=== PATIENT | female | born 1955 | race Caucasian/White ===

== ENCOUNTER 2024-02-08 13:44 | Outpatient (CLI) | payer MEDICARE, SELFPAY ==
[2024-02-08 14:10] LABS: Basophils # 0.1 K/mm3 (0-0.2); Basophils % 1.1 % (0.1-2.0); Eosinophils # 0.2 K/mm3 (0.0-0.4); Hematocrit 38.2 % (37.0-47.0); Lymphocytes # 1.8 K/mm3 (0.7-4.5); Lymphocytes % 33.1 % (10-50); Mean Corpuscular HGB Conc 34.2 g/dL (31.8-35.4); Mean Corpuscular Hemoglobin 31.8 pg (27.0-31.2); Mean Platelet Volume 8.5 fl (7.4-10.4); Monocytes # 0.4 K/mm3 (0.1-1.0); Monocytes % 6.4 % (1.7-9.3); Neutrophils # 3.1 K/mm3 (1.8-7.8); Neutrophils % 56.3 % (37.0-80.0); Platelet Count 284 K/mm3 (142-424); Red Cell Distribution Width 14.3 % (11.5-17.5); White Blood Count 5.5 K/mm3 (4.8-10.8)
[2024-02-08 15:08] LABS: 25-OH Vitamin D, Total 108 ng/mL (30-100)
[2024-02-08 15:11] LABS: Erythrocyte Sedimentation Rate 22 mm/hr (0-30)
[2024-02-08 16:56] LABS: Alanine Aminotransferase 17 U/L (12-78); Albumin Level 4.3 g/dl (3.5-5.0); Albumin/Globulin Ratio 1.7 (1.1-1.8); Alkaline Phosphatase 84 U/L (38-126); Anion Gap 12.6 mEq/L (5-15); Aspartate Amino Transferase 37 U/L (14-36); Bilirubin,Total 0.5 mg/dl (0.2-1.3); Blood Urea Nitrogen 19 mg/dl (7-17); Calcium 9.5 mg/dl (8.4-10.2); Carbon Dioxide 27 mmol/L (22.0-30.0); Chloride 106 mmol/L (98-107); Estimated Glomerular Filt Rate 71 ml/min (>60); GFR (African American) 86 ML/MIN (>60); Globulin 2.6 g/dL (1.3-3.2); Glucose 90 mg/dl (74-100); Potassium 4.6 mmoL/L (3.5-5.1); Sodium 141 mmol/L (136-145); Total Protein,Serum 6.9 g/dl (6.3-8.2)
[2024-02-08 17:01] LABS: C-Reactive Protein 2.9 mg/L (0-4)
[2024-02-08 18:23] LABS: Vitamin B12 > 1000 pg/mL (239-931)
[2024-02-08 19:44] LABS: Iron 54 ug/dL (37-170)
[2024-02-08 19:53] LABS: Total Iron Binding Capacity 380 ug/dL (265-497)
[2024-02-08 20:20] LABS: Ferritin 15.9 ng/ml (11.1-264)
== END 2024-02-08 23:59 | disposition home or self-care (01) ==
LOC: LAB 13:47
PROVIDERS: PCP Emergency Medicine; Visit Provider Nurse Practitioner Family
DX: K51.90 Ulcerative colitis, unspecified, without complications (principal); E55.9 Vitamin D deficiency, unspecified
CPT/HCPCS: 36415; 80053; 82306; 82607; 82728; 83540; 83550; 85025; 85651; 86140

== ENCOUNTER 2024-04-12 14:46 | Outpatient (CLI) | payer MEDICARE, SELFPAY ==
[2024-04-12 15:00] LABS: Microscopic, Urine URINE MICROSCOPIC (MICROSCOPIC)
[2024-04-12 15:40] LABS: Hematocrit 40.1 % (37.0-47.0); Mean Corpuscular HGB Conc 32.4 g/dL (31.8-35.4); Mean Corpuscular Hemoglobin 30.4 pg (27.0-31.2); Mean Corpuscular Volume 93.7 fl (81-99); Platelet Count 276 K/mm3 (142-424); Red Blood Count 4.28 M/mm3 (4.20-5.40); Red Cell Distribution Width 13.3 % (11.5-17.5); White Blood Count 7.2 K/mm3 (4.8-10.8)
[2024-04-12 15:49] LABS: Appearance,Urine CLEAR (Clear); Bilirubin,Urine Negative (Negative); Blood, Urine Negative (Negative); Color,Urine YELLOW (Yellow); Glucose,Urine (UA) Negative (Negative); Ketones,Urine Negative (Negative); Leukocyte Esterase,Urine 1+ (Negative); Nitrate,Urine Negative (Negative); Protein,Urine Negative (Negative); Urobilinogen,Urine 0.2 EU/dl (0.2)
[2024-04-12 15:51] LABS: Alanine Aminotransferase 17 U/L (12-78); Albumin Level 4.7 g/dl (3.5-5.0); Albumin/Globulin Ratio 1.8 (1.1-1.8); Alkaline Phosphatase 86 U/L (38-126); Anion Gap 14.4 mEq/L (5-15); Aspartate Amino Transferase 24 U/L (14-36); Bilirubin,Total 0.2 mg/dl (0.2-1.3); Blood Urea Nitrogen 18 mg/dl (7-17); Calcium 10.1 mg/dl (8.4-10.2); Carbon Dioxide 28 mmol/L (22.0-30.0); Chloride 104 mmol/L (98-107); Estimated Glomerular Filt Rate 62 ml/min (>60); GFR (African American) 75 ML/MIN (>60); Globulin 2.6 g/dL (1.3-3.2); Glucose 94 mg/dl (74-100); Potassium 4.4 mmoL/L (3.5-5.1); Sodium 142 mmol/L (136-145); Total Protein,Serum 7.3 g/dl (6.3-8.2); Uric Acid 4.8 mg/dl (2.5-6.2)
[2024-04-12 16:03] LABS: Intact Parathyroid Hormone 44.8 pg/mL (7.5-53.5)
[2024-04-12 16:08] LABS: 25-OH Vitamin D, Total 93.5 ng/mL (30-100)
[2024-04-12 16:22] LABS: Bacteria,Urine 1+ /lpf
[2024-04-12 16:23] LABS: Hemoglobin A1C 5.4 % (4.0-6.0)
== END 2024-04-12 23:59 | disposition home or self-care (01) ==
PROVIDERS: PCP Emergency Medicine; Visit Provider Internal Medicine Nephrology
DX: I10 Essential (primary) hypertension (principal); G47.30 Sleep apnea, unspecified; E03.9 Hypothyroidism, unspecified
CPT/HCPCS: 36415; 80053; 81001; 82306; 83036; 83970; 84550; 85027; 87086

== ENCOUNTER 2024-06-01 12:18 | Outpatient (CLI) | payer MEDICARE, SELFPAY ==
--- NOTE | 2024-06-01 12:36 | CT_ITS ---
FINAL REPORT TECHNIQUE: After the administration of intravenous contrast, axial images through the chest were performed by computed tomography. Coronal and sagittal reconstructed images were obtained and reviewed. This study was performed with techniques to keep radiation doses as low as reasonably achievable, (ALARA). Individualized dose reduction techniques using automated exposure control or adjustment of mA and/or kV according to the patient's size were employed. CLINICAL HISTORY: Shortness of breath COMPARISON: None FINDINGS: There is no axillary adenopathy. The mediastinal vasculature is adequately opacified. There is no mediastinal mass or adenopathy. The heart size is normal. There is scarring at the lung bases and in the medial left apex. There is no pericardial or pleural effusion. There is streak artifact from a loop recorder device in the upper left thorax. Limited images of the upper abdomen are unremarkable. No suspicious infiltrate or nodule identified. IMPRESSION: No acute process. Reviewed, Interpreted and Dictated by Fredrick Bobby MD Transcribed by Miriam Bruno Authenticated and [facility]
[2024-06-01 12:48] LABS: Blood Urea Nitrogen 19 mg/dl (7-17); Estimated Glomerular Filt Rate 62 ml/min (>60); GFR (African American) 75 ML/MIN (>60)
[2024-06-01] MEDS: IOPAMIDOL-370 (76%);100ML BOTTLE 75 ML IV (13:07)
[2024-06-01] MEDS: SODIUM CHLORIDE 0.9% 10ML SYR (RAD ONLY) 10 ML IV (13:07)
== END 2024-06-01 23:59 | disposition home or self-care (01) ==
LOC: RAD 12:21
PROVIDERS: PCP Emergency Medicine; Visit Provider Emergency Medicine
DX: R06.00 Dyspnea, unspecified (principal)
CPT/HCPCS: 36415; 71260; 82565; 84520; Q9967

== ENCOUNTER 2024-09-05 09:38 | Outpatient (CLI) | payer MEDICARE, SELFPAY ==
--- OUTSIDE RECORDS SUMMARY | 2024-09-05 09:44 | XMS_ITS | Data Portability ---
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 Her sister agrees to stepping as patient's advocate [email or web address] Not available 05/18/2024 10:32:47 Plan of Treatment Reminders Order Date Submit Date Provider Last Modified By Organization Details Last Modified Time Details Appointments None recorded. Lab None recorded. Referral neurologist referral 2024 025 mayra Salamanca MD, [address], [place], [address], 11:08:[address] referral - sob. may have pe? 2024 025 mayra Medrano MD, [address], [address], [place], [address], 11:08:31 nephrologis t referral 2023 024 mayra Cantrell MD, [address], [place], [address], 07:19:55 gastroenter ologist referral 2023 024 IRON Sousa MD, [address], [place], [address], 4 14:08:28 Procedures None recorded. Surgeries None recorded. Imaging CT, chest, w/ contrast - PE protocol 2024 025 [facility] Scheduling Department -New Scheduling Process, [address], [place], [address], 5 13:21:17 MAMMO, screening, digital, bilateral 2023 024 [email or web address] 0 [facility] (Scheduling), [address] [place], [address], 4 09:55:43 Medication Orders duloxetine 20 mg capsule,del ayed release 2024 025 [facility] [id number], [address] [place] [address], [address], [address], 5 10:31:20 amlodipine 5 mg tablet 2023 024 [facility] [id number], [address] [place] [address], [address], [address], 4 12:23:33 amlodipine 5 mg tablet 2023 024 [facility] [id number], [address] [place] [address], [address], [address], 4 12:05:51 Patient TargetsNo targets recorded. Patient InstructionsNo instructions recorded. Reason for Referral Manager Library Referral for Gastric spasm Referring Physician: Aleksandar Sanders [facility], Encounter Date: 01/20/2024 Staffing And Scheduling Coordinator Referral for Es sential hypertension Referring Physician: Aleksandar Sanders [facility], Encounter Date: 01/28/2024 Neurologist Referral for Tra nsient cerebral ischemia Referring Physician: [facility], Encounter Date: 05/18/2024 Lpn Cma Referral for D yspnea sob. may have pe? Referring Physician: Aleksandar Sanders [facility], Encounter Date: 05/18/2024 Results Created Date Observation Date Name Description Value Unit Range Abnormal Flag Note LastModifiedBy Organization Detail LastModifiedTime 08/12/19 24 08/11/2023 imagi ng inter preta tion No observ ation record ed. [facility] [address], [place], [address], 08/12/2023 16:27:57 06/09/19 25 06/01/2024 CT, chest , w/ contr ast No observ ation record ed. [facility] (Med Record) [address], [place], [address], 06/08/2024 14:27:19 Result Notes None recorded. Problems Name Problem SNOMED Code Status Onset Date Resolution Date Notes Provider Name and Address Organization Details Recorded Time Chronic kidney disease 873202950 Active 2023 Oraliagoldy Laboyi null, [place] - [facility] [place] [facility] [place] 4 11:37:11 Vertigo 813837621 Active 2022 Oralia Je null, [place] [facility] [place] [facility] [place] 3 11:45:53 Essential hypertensi on 76121850 Active 2022 Oralia Nardai null, [place] [facility] [place] 3 11:46:00 Hypothyroi dism 44254887 Active 2022 Oralia Nardai null, [place] [facility] [place] 3 11:46:08 Sensorineu ral hearing loss 45573069 Active 2022 ESVIN CABRERA, AUD [address] [facility], [place], [address] , [place] [facility] [place] [facility] [place] 3 10:34:18 Asymmetric al sensorineu ral hearing loss 860676644 Active 2022 ESVIN CABRERA, AUD [address], [place], [address] , [facility] & [place] 3 10:36:27 Dizziness 760516119 Active 2022 CLARK REAVES [address], [place], [address] , [facility] & [place] 3 10:36:30 Subjective pulsatile tinnitus of left ear 8678932066573 103 Active 2022 ESVIN CABRERA, AUD [address], [place], [address] , [facility] & [place] 3 10:36:34 Rib pain 071776068 Active 2022 Aleksandar Sanders MD [address] [place] [address], [address] , [facility] [place] 3 10:39:49 History of colitis 533918327 Active 2023 Oralia Wooten [facility], [facility] & [place] 4 15:56:06 Problem Notes None recorded. Procedures Surgical History Date Name Laterality Status Provider Name and Address Organization Details Recorded Time 03/23/18 81 Tonsillectomy/Andrew oidectomy completed Althea Hoskins NT [facility] [place] 01/30/2023 09:07:02 Other completed Althea Hoskins [facility] [place] 01/30/2023 09:07:02 ligation of bilateral fallopian tubes [facility] [place] 01/21/2024 11:01:31 extracorporeal shockwave lithotripsy of calculus of kidney completed [facility] [place] 01/21/2024 11:01:48 Imaging Results None recorded. Procedure Notes None recorded. Medical Equipment None Reported. Allergies No known drug allergies Medications Name Sig Start Date Stop Date Status Note LastModified by Organization Details LastModified Time cyclobenzap rine 10 mg tablet 11/19 completed Not Available Not Available Not Available amoxicillin 500 mg capsule 08/11 completed Not Available Not Available Not Available atorvastati n 40 mg tablet 1 tablet by mouth once daily active Not Available Not Available No t Available clonidine HCl 0.1 mg tablet 01/19 completed Not Available Not Available Not Available doxycycline hyclate 100 mg capsule Take 1 capsule twice a day by oral route. 01/07 completed Not Available Not Available Not Available clonidine 0.1 mg/24 hr weekly transdermal patch 01/19 completed Not Available Not Available Not Available clonidine 0.2 mg/24 hr weekly transdermal patch 05/18 completed Not Available Not Available Not Available metoprolol succinate ER 50 mg tablet,exte nded release 24 hr TAKE 1 TABLET BY MOUTH DAILY active Not Available Not Available No t Available ondansetron HCl 8 mg tablet 02/01 completed Not Available Not Available Not Available lisinopril 20 mg tablet 11/19 completed Not Available Not Available Not Available ondansetron HCl 4 mg tablet 12/17 completed Not Available Not Available Not Available prednisone 20 mg tablet Take by oral route for 5 days. 12/17 completed Not Available Not Available Not Available topiramate 25 mg tablet 01/19 completed Not Available Not Available Not Available amlodipine 5 mg tablet Take 1 tablet every day by oral route. active Not Available Not Available No t Available ciprofloxac in 500 mg tablet 05/18 completed Not Available Not Available Not Available aspirin 81 mg tablet,mayelin yed release Take 1 tablet every day by oral route for 90 days. 2024 active Not Available Not Available Not Avai lable spironolact one 25 mg tablet 05/18 completed Not Available Not Available Not Available levothyroxi ne 25 mcg tablet Take by oral route for 90 days. active Not Available Not Available No t Available oxycodone-a cetaminophe n 5 mg-325 mg tablet 01/19 completed Not Available Not Available Not Available nifedipine ER 60 mg tablet,exte nded release 24 hr active Not Available Not Available Not Available meclizine 25 mg tablet 02/01 completed Not Available Not Available Not Available amlodipine 10 mg tablet 01/19 completed Not Available Not Available Not Available oseltamivir 75 mg capsule 05/18 completed Not Available Not Available Not Available lisinopril 10 mg tablet Take 1 tablet every day by oral route for 30 days. active Not Available Not Available No t Available omeprazole 20 mg capsule,del ayed release TAKE 1 CAPSULE BY MOUTH DAILY NEEDED active Not Available Not Available No t Available hydroxyzine HCl 25 mg tablet Take 1 tablet 3 times a day by oral route as needed for 30 days. 01/07 completed Not Available Not Available Not Available clonidine 0.3 mg/24 hr weekly transdermal patch active Not Available Not Available Not Available metoprolol succinate ER 25 mg tablet,exte nded release 24 hr Take 1 tablet every day by oral route as directed for 30 days. active Not Available Not Available No t Available scopolamine 1 mg over 3 days transdermal patch 01/19 completed Not Available Not Available Not Available lisinopril 40 mg tablet TAKE ONE TABLET BY MOUTH DAILY 01/07 completed Not Available Not Available Not Available spironolact one 50 mg tablet active Not Available Not Available Not Available metoclopram delfino 10 mg tablet 02/01 completed Not Available Not Available Not Available azithromyci n 500 mg tablet 12/09 completed Not Available Not Available Not Available duloxetine 20 mg capsule,del ayed release TAKE 1 CAPSULE BY MOUTH DAILY 2024 active Not Available Not Available Not Avai lable mesalamine 1,000 mg rectal suppository 11/19 completed Not Available Not Available Not Available Culturelle active Not Available Not Av ailable Not Available mesalamine 1.2 gram tablet,mayelin yed release 08/11 completed Not Available Not Available Not Available mesalamine ER 0.375 gram capsule,ext ended release 24 hr TAKE FOUR CAPSULES BY MOUTH DAILY active Not Available Not Available No t Available calcium 200 mg-vitamin D3 1.25 mcg-magnesi um 50 mg capsule Take by oral route. 01/19 completed Not Available Not Available Not Available Kerendia 20 mg tablet Take by oral route for 90 days. 2023 active Not Available Not Available Not Avai lable Vitals Date Recorded Body height Body mass index (BMI) Body weight Body temperature Oxygen saturation Oxygen saturation in Arterial blood by Pulse oximetry Heart rate Respiratory rate Systolic blood pressure Diastolic blood pressure Systolic blood pressure Diastolic blood pressure Provider Name and Address Organization Details Last Updated DateTime 4 171.45 cm 35.7 kg/m2 026444. 99 g 97.3 [degF] 96 % 96 % 78 /min 20 /min 146 mm[Hg] 87 mm[Hg] 112 mm[Hg] 72 mm[Hg] Oralia [place]oy [place] [facility] & [place] 4 10:14:03 Date Recorded Body height Body mass index (BMI) Body weight Heart rate Body temperature Oxygen saturation Oxygen saturation in Arterial blood by Pulse oximetry Systolic blood pressure Diastolic blood pressure Provider Name and Address Organization Details Last Updated DateTime 5 171.45 cm 31.6 kg/m2 55458 g 87 /min 97.5 [degF] 96 % 96 % 119 mm[Hg] 76 mm[Hg] Oralia Laboy [place] [facility] & [place] 5 09:53:53 Date Recorded Body height Body mass index (BMI) Body weight Body temperature Oxygen saturation Oxygen saturation in Arterial blood by Pulse oximetry Heart rate Respiratory rate Systolic blood pressure Diastolic blood pressure Provider Name and Address Organization Details Last Updated DateTime 4 171.45 cm 32.5 kg/m2 11983.2 7 g 97.6 [degF] 96 % 96 % 69 /min 16 /min 161 mm[Hg] 82 mm[Hg] Oralia Laboy [place] [facility] & [place] 4 10:31:31 Date Recorded Body height Body mass index (BMI) Body weight Body temperature Oxygen saturation Oxygen saturation in Arterial blood by Pulse oximetry Heart rate Respiratory rate Systolic blood pressure Diastolic blood pressure Provider Name and Address Organization Details Last Updated DateTime 4 171.45 cm 32.8 kg/m2 87160.4 6 g 98 [degF] 95 % 95 % 64 /min 16 /min 191 mm[Hg] 91 mm[Hg] Oralia Laboy [place] - [facility] & [place] 4 12:05:30 Date Recorded Body height Body mass index (BMI) Body weight Body temperature Oxygen saturation Oxygen saturation in Arterial blood by Pulse oximetry Heart rate Respiratory rate Systolic blood pressure Diastolic blood pressure Provider Name and Address Organization Details Last Updated DateTime 4 171.45 cm 33.4 kg/m2 41096.1 1 g 97.2 [degF] 99 % 99 % 57 /min 16 /min 185 mm[Hg] 79 mm[Hg] Oralia SYLVESTER [facility] & [place] 11:54:17 Social History Question Answer Notes LastModified by Organizat ion Details LastModified Time Tobacco Smoking Status Never Smoker Oralia mera, [place] [facility] & [place] 12/09/2022 11:46:49 Do You Have An Advance Directive? No [email or web address] Information n ot available 02/04/2023 Do You Wear A Helmet When Biking? No Information not available 02/29/2024 Are You Blind Or Do You Have Difficulty Seeing? No [email or web address] Information n ot available 02/04/2023 What Is Your Level Of Caffeine Consumption? Occasional [email or web address] Information not available 02/04/2023 In The 14 Days Before Symptom Onset, Have You Had Close Contact With A Laboratory-confirm ed COVID-19 While That Case Was Ill? No Information n ot available 02/29/2024 In The 14 Days Before Symptom Onset, Have You Had Close Contact With A Person Who Is Under Investigation For COVID-19 While That Person Was Ill? No Information not available 02/29/2024 Have You Been To An Area Known To Be High Risk For COVID-19? No Information not available 02/29/2024 Are You Deaf Or Do You Have Serious Difficulty Hearing? No Information not available 02/29/2024 What Type Of Diet Are You Following? REGULAR Information n ot available 01/20/2024 Have You Processed Blood Or Body Fluids From An Ebola Virus Disease Patient Without Appropriate PPE? No Information not available 02/29/2024 Do You Reside In Or Have You Traveled To An Area Where Ebola Virus Transmission Is Active? No Information not available 02/29/2024 Have You Recently Or Are You Planning To Travel To An Area With Zika Virus? No Information not available 02/29/2024 Do You Feel Safe At Home? Yes Information not available 02/29/2024 Do You Have A Medical Power Of Client Evaluator? No Information not available 02/29/2024 What Was The Date Of Your Most Recent Tobacco Screening? 02/01/2023 [email or web address] Information not available 02/04/2023 Do You Use Your Seat Belt Or Car Seat Routinely? Yes Information not available 02/29/2024 Are You Passively Exposed To Smoke? No [email or web address] Information no t available 02/04/2023 Has Tobacco Cessation Counseling Been Provided? No [email or web address] Information not available 02/04/2023 Do You Have Difficulty Walking Or Climbing Stairs? No Information not available 02/29/2024 Are You Currently In School? No Information not available 02/29/2024 Sex: Unknown Functional Status Question Answer Note LastModified by Organizat ion Details LastModified Time Do you use any illicit or recreational drugs? No Information not available 12/09/2022 Do you or have you ever used any other forms of tobacco or nicotine? No [email or web address] Information not available 02/04/2023 What is your level of alcohol consumption? None Information not available 12/09/2022 Are you currently employed? No Information not available 02/29/2024 Do you have transportation difficulties? No Information not available 02/29/2024 Are you able to walk? [email or web address] Information not available 02/29/2024 Do you have difficulty doing errands alone? No Information not available 02/29/2024 Are you able to care for yourself? Yes Information not available 02/29/2024 Do you have difficulty dressing or bathing? No Information not available 02/29/2024 What is your exercise level? Moderate [email or web address] Information not available 02/04/2023 Mental Status Question Answer Note LastModified by Organizat ion Details LastModified Time Do you feel stressed (tense, restless, nervous, or anxious, or unable to sleep at night)? [id number] Information not available 02/29/2024 Do you have difficulty concentrating, remembering or making decisions? No Information no t available 02/29/2024 Family History Relationship Description Onset Age of this Age Resolved Age Notes LastModified by Organization Details LastModified Time Father No current problems or disability [email or web address] Not available 02/04 10:08:24 Father Suicide [email or web address] Not available 02/04/2023 10:08:24 Father Father [email or web address] Not available 2022 10:08:24 Mother No current problems or disability [email or web address] Not available 02/04 10:08:24 Mother Chronic obstructive pulmonary disease 81 Not available 2022 09:24:38 Mother Heart disease 81 [email or web address] Not available 2022 09:24:58 Mother Mother 81 [email or web address] Not available 2022 10:08:24 Brother Motor vehicle accident [email or web address] Not available 2022 10:08:24 Brother Sibling Not available 2022 10:08:24 Daughter Kidney disease Not available 2022 09:26:26 Medical History Condition Response Allergies/Hayfever Y Arthritis Y Ear or Hearing Problems Y Sleep Disorder Y Stroke Y Thyroid Problems Y Hypertension Y Gynecological History Statement/Question Response Menses Monthly N Sexually Active? N Obstetrics History GPAL:G 0 P 0 0 0 0 Immunizations Vaccine Type Date Status Note Provider Nam e and Address Organization Details Recorded Time Tdap 03/27/2017 completed Althea mera, [place] [facility] [place] [facility] [place] 01/30/2023 09:26:47 zoster recombinant 05/07/2021 completed Althea [place]era, [place] [facility] [place] [facility] [place] 08/10/2023 09:11:39 zoster recombinant 12/06/2020 completed Althea [place]era, [place] [facility] [place] [facility] [place] 08/10/2023 09:11:39 Influenza, high-dose, quadrivalent, PF 12/26/2021 iman mera, [place] [facility] [place] [facility] [place] 08/10/2023 09:11:39 COVID-19, mRNA, LNP-S, PF, 100 mcg/0.5mL dose or 50 mcg/0.25mL dose 04/14/2020 iman Robertsonher Archibald null, [place] [facility] [place] 08/10/2023 09:11:40 COVID-19, mRNA, LNP-S, PF, 100 mcg/0.5mL dose or 50 mcg/0.25mL dose 05/12/2020 completed Althea Dragan null, [place] [facility] [place] [facility] [place] 08/10/2023 09:11:40 COVID-19, mRNA, LNP-S, PF, 100 mcg/0.5mL dose or 50 mcg/0.25mL dose 02/07/2021 completed Althea Arch[place]ald null[place] [facility] [place] [facility] [place] 08/10/2023 09:11:40 Hep B, unspecified formulation 08/13/1995 completed Althea Archibald null[place] [facility] [place] [facility] [place] 08/10/2023 09:11:40 Hep A, adult 04/25/2019 completed Althea Sin s [place] [facility] [place] 08/10/2023 09:11:40 Hep A, adult 10/13/2018 completed Althea Merrick s null[place] [facility] [place] [facility] [place] 08/10/2023 09:11:40 Past Encounters Encounter ID Performer Location Encounter Start Date Encounter Closed Date Diagnosis/Indication Diagnosis SNOMED-CT Code Diagnosis ICD10 Code Diagnosis Note [id number] Aleksandar Sanders MD [facility] [address] [place] [address] 11/19/2022 10:13:48 11/19/2022 11:40:30 History of cerebrovascular accident 958565021 Z86.73 patient appears to have had a new cerebrovas cular accident. Will refer her to speech therapy, and neurology. Will attempt to get an MRI. Essential hypertension 16464375 I10 Patient's blood pressure appears to be irregular. She has been advised to keep a log, hold off taking the amlodipine and follow-up in a week. Hypothyroidism 17798402 E03.9 Will obtain lab work today. Ulcerative colitis 74282 004 K51.90 patient is being followed by gastroente rology. Diabetes m ellitus screening 062701796 Z13.1 Will obtain screening labs at this time. Dizziness 826261413 R42 [id number] Aleksandar Sanders MD [address] [place] [address] 11/26/2022 15:11:36 11/26/2022 15:56:43 Orthostatic hypotension 83249184 I95.1 pt to hold all blood pressure lowering meds at this time call in 24 hrs with readings and symptoms Dizziness 090680321 R42 hold bp meds - will obtain echocardio gram [id number] Aleksandar Sanders MD [address] [place] [address] 12/09/2022 11:24:52 12/09/2022 12:15:38 Dizziness 515966965 R42 patient to follow-up with leida harden. Will treat her for labyrinthi tis. She is to to call and get her speech therapy appointmen fina garcia Decreased hearing 778271 001 H91.92 will refer patient to ENT. [id number] Mingo Heredia M.D [facility] [address] [address] 12/11/2022 10:10:20 12/11/2022 11:23:54 Benign paroxysmal positional vertigo 485735935 H81.10 Dysarthria 9824591 R47.1 [id number] CLARK REAVES [facility] [facility] [place] [address] 12/16/2022 09:29:44 12/16/2022 09:54:04 Asymmetrical sensorineural hearing loss 390724224 H90.5 Dizziness 070734353 R42 Subjective pulsatile tinnitus of left ear 7680522461 204076 H93.A2 [id number] Krystal Lafleur MD [facility] [address] 12/17/2022 15:31:10 12/17/2022 16:20:02 Dizziness 251261795 R42 Went over the results of the MRI myself with the patient in office today. Karin Halpike was negative in office today. I want her to discontinu e the hydroxyzin e and the oral antibiotic . The hydroxyzin e may prolong recovery. Likely diagnosis in this situation with imbalance and hearing loss is labyrhinit is. She is unfortunat kimmie out of the window that I think oral steroids may be terribly beneficial . Could consider intratympa christa steroids in the future if hearing does not improve. This can take several weeks and up to 3 months to resolve. Hearing may never fully recover. Encouraged her to keep her appointmen t with PT for vestibular therapy and to make sure she does the home exercises. I will see her back in three weeks with an audiogram. Sooner if needed. Asymmetric al sensorineural hearing loss 636594818 H90.5 Subjective pulsatile tinnitus of left ear 4837062700 050592 H93.A2 Labyrinthitis 63094846 H 83.02 [id number] Krystal Lafleur MD [facility] [place] [id number] 01/07/2023 08:54:12 01/07/2023 09:29:42 Dizziness 010480402 R42 Patient's hearing and dizziness has improved overall. I have encouraged her to resume normal activities as much as possible and continue with PT for vestibular therapy. Asymmetric al sensorineural hearing loss 341225954 H90.5 Subjective pulsatile tinnitus of left ear 2473369370 749992 H93.A2 Labyrinthitis 91282103 H 83.02 [id number] CLARK REAVES [facility] [place] [address] 01/07/2023 09:03:58 01/07/2023 09:13:00 Asymmetrical sensorineural hearing loss 589685737 H90.5 [id number] Aleksandar Sanders MD [facility] [address] [place] [address] 02/04/2023 10:07:45 02/04/2023 10:27:32 Essential hypertension 78008884 I10 patient with hold metoprolol and follow-up in a week with a log. Vertigo 057718927 R42 resolved [id number] Krystal Lafleur MD [facility] [place] [id number] 02/04/2023 08:56:48 02/04/2023 09:41:10 Dizziness 944160997 R42 Explained to patient she may be experienci ng orthostati c hypertensi on when she first stands. Her drop in blood pressure after standing for an amount of time could be related to her blood pressure medication and this is a conversati on she needs to have with her primary care physician. She doesn't feel as though she is back to baseline but she has seen johnan t improvejackie t. I will see her back as needed. Labyrinthitis 02471020 H 83.02 [id number] Aleksandar Sanders MD [address] [place] [address] 02/11/2023 09:42:42 02/11/2023 10:21:29 Screening mammography of bilateral breasts 8262494060 10423 Z12.31 Chest wall pain 64114451 6 R07.89 continued Pain from rib fractures 5 months ago. Will obtain x-rays today. Essential hypertension 42991064 I10 Patient is log has been reviewed. It appears that her blood pressures are completely erratic. There is also a drop in blood pressure with position. I have asked patient to restart her metoprolol and I have personally walked over to see her cardiologi st Dr. Stewart Vertigo [id number] R42 resolved Rib pain [id number] R07.8 1 continued rib pain to the right side. We will obtain x-rays today. [id number] Aleksandar Sanders MD [address] [place] [id number] 04/22/2023 09:50:58 04/22/2023 10:41:41 Essential hypertension [id number] I10 Patient needs to follow-up with cardiology as discussed. We have called them for an appointmen t. They will call patient with a early appointmen t to see Dr. Stewart [id number] Aleksandar Sanders MD [address] [place] [id number] 08/12/2023 10:07:43 08/12/2023 10:57:43 Essential hypertension [id number] I10 I have called Cardiology . Patient has a follow-up appointmen t. In the meantime, will start her on amlodipine for now. She has been advised to continue to check her blood pressure. Pain of [facility] [id number] M25.519 patient needs to follow-up with orthopedis t. We have already made an appointmen t for her to see the orthopedis t. [id number] Aleksandar Sanders MD [address] [place] [id number] 01/20/2024 11:45:23 01/20/2024 12:17:20 Essential hypertension [id number] I10 I have instructed patient to restart her amlodipine , I have asked her to take 5 mg a day. She has been instructed to create a log of her blood pressure once she starts the medication and to follow-up in a week. Gastric spasm [id number] K31.89 Ms. Chadwick has a history of ulcerative colitis. She is complainin g of chronic gastric spasms.ed garber is requesting a referral to her gastroente rologist. She sees Dr. Ronquillo in [place]. [id number] Aleksandar Sanders MD [address] [place] [id number] 01/28/2024 11:44:06 01/28/2024 12:27:02 Screening mammography of bilateral breasts [id number] 41651 Z12.31 Essential hypertension [id number] I10 we have reviewed patient's blood pressure log. Amlodipine has not made any changes to patient's blood pressure. Her blood pressure continues to be labile. Will refer patient to Nephrology for assistance with management . Patient is already seeing Cardiology .we have also given patient 2 weeks samples of kerendia [id number] Aleksandar Sanders MD [address] [place] [id number] 05/18/2024 09:41:18 05/18/2024 10:00:01 Hospital inpatient stay within past 30 days [id number] 106 Z76.89 Transient cerebral ischemia [id number] G45.9 will refer patient to neurology. Dyspnea [id number] R06.00 patient appears to be short of breath. Her O2 sat is above 90 however will refer to pulmonolog y. 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 Health Concerns Section Related Observation LastModified by Organization Detai ls LastModified Time None Recorded Concern Status LastModified by Organization Details LastModified Time None Recorded Advance Directives Directive N: Payers Insurance Date Sequence Insurance Name Policy Number Policy Colon Covered Member ID Colon Member ID Guarantor Name 05/17/2024 1 [employer] (MEDICARE REPLACEMENT/ ADVANTAGE - PPO) Izabela Chadwick [id number] Izabela Wu Chadwick 04/17/2023 1 [place] Izabela Chadwick [id number] Izabela Chadwick 04/15/2023 1 [place] [id number] Izabela Chadwick [id number] Izabela Chadwick 04/17/2023 1 *SELF PAY* Pa vasyl Wu Farrukh Notes Date Note Type Note Provider Name and Address Organization Details Recorded Time 04/22/2023 text/html Patient presents today to follow-up on her blood pressure. It appears that her blood pressure is dropping every time she stands up. She has stopped taking her carvedilol and feels better. Aleksandar Sanders MD [address] [place] [address], [phone], [facility] & [place] 04/22/2023 10:42:24 08/12/2023 text/html patient presents today to follow-up on her blood pressure. Her blood pressure is elevated. Patient is being seen by her unmanned equipment operator. She states that she was taken off all blood pressure medication and was told to manage her blood pressure with p.r.n. clonidine. Patient is unhappy with her blood pressure states that it is often elevated and she has a headache.She also is in the process of being seen by Physical therapy secondary to a right shoulder problem. 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 Aleksandar Sanders MD [address] [place] [address], [phone] & [place] 08/12/2023 10:45:57 01/20/2024 text/html patient presents today to discuss blood pressure management. She states that her blood pressure is elevated. Patient has been seen her unmanned equipment operator for blood pressure management. Her amlodipine was stopped because she says her blood pressure was too low. Patient presents with a log today that indicates her systolic blood pressure is persistently above 150. Patient is currently on a clonidine patch weekly. A review of a log reveals that her blood pressure is consistently elevated. Aleksandar Sanders MD [address] [place] [address], [phone], [facility] & [place] 02/29/2024 15:22:56 05/18/2024 text/html Patient presents today to follow-up from hospital visit. patient was admitted for what appeared to be a TIA. Patient remains worried and stressed. Aleksandar Sanders MD [address] [place] [address], [phone], [facility] & [place] 05/18/2024 10:33:52 OBGyn Episode No OBEpisode recorded.
[2024-09-05 10:40] VITALS: PULSE 73; PULSE 78
[2024-09-05] MEDS: ALBUTEROL 0.083% 2.5 MG/3 ML NEB IH (10:40)
== END 2024-09-05 23:59 | disposition home or self-care (01) ==
LOC: RT 09:39
PROVIDERS: PCP Emergency Medicine; Visit Provider Internal Medicine Pulmonary Disease
DX: J44.9 Chronic obstructive pulmonary disease, unspecified (principal)
CPT/HCPCS: 94060; 94618; 94640; 94726; 94729

== ENCOUNTER 2024-10-17 12:52 | Outpatient (CLI) | payer MEDICARE, SELFPAY ==
--- OUTSIDE RECORDS SUMMARY | 2024-09-15 07:49 | XMS_ITS | Encounter Summary ---
[facility] Address [address] [place] [address] Care Team Providers Care Carbon Dioxide Operator Name Role Phone Aleksandar Luciano MD Primary Care Provider [phone] Reason for Referral * Cardiac (Routine) - Closed Specialty Diagnoses / Procedures Referred By Contac t Referred To Contact Diagnoses Autonomic dysfunction Procedures Tilt Table Carol Stewart MD [address] [place] [address] Phone: tel: fax: [facility] [address] [facility] [address] [place] [address] Phone: tel: fax: Referral ID Status Reason Start Date Expiration Date Visits Re quested Visits Authorized [id number] Closed 07/25/2024 10/24/2025 1 1 Reason for Visit * Cardiac (Routine) - Closed Specialty Diagnoses / Procedures Referred By Contac t Referred To Contact Diagnoses Autonomic dysfunction Procedures Tilt Table Carol Stewart MD [address] [place] [address] Phone: tel: fax: [facility] [address] [facility] [address] [place] [address] Phone: tel: fax: Referral ID Status Reason Start Date Expiration Date Visits Re quested Visits Authorized [id number] Closed 07/25/2024 10/24/2025 1 1 Encounter Details Date Type Department Care Team (Latest Contact Info) Description 09/15/2024 7:49 AM EDT - 09/15/2024 11:59 PM EDT Hospital Encounter [facility] [place] [address] [facility] [address] [place] [address] Carol Stewart MD [address] [place] [address] Autonomic dysfunction Discharge Disposition: Home or Self Care Social History Tobacco Use Types Packs/Day Years Used Date Smoking Tobacco: Never Passive Smoke Exposure: Never Smokeless Tobacco: Never Alcohol Use Standard Drinks/Week Comments Never 0 (1 standard drink = 0.6 oz pur e alcohol) AUDIT-C Answer Date Recorded Q1: How often do you have a drink containing alc ohol? Never 10/26/2020 Average Number of Drinks Not on file 021 Frequency of Binge Drinking Not on file 08/2020 Abuse Screen Answer Date Recorded Feels Unsafe at Home or Work/School no 06/14/2024 Feels Threatened by Someone no 05/22 Does Anyone Try to Keep You From Having Contact with Others or Doing Things Outside Your Home? no 06/14/2024 Physical Signs of Abuse Present no 06/14/2024 Housing Stability Answer Date Recorded Current Living Arrangements home 05/22 Potentially Unsafe Housing Conditions Not on antonio e 06/14/2024 Disabilities Answer Date Recorded Difficulty Concentrating, Remembering or Making Decisions no 06/14/2024 Difficulty Managing Errands Independently no 06/14/2024 Comments Unknown Sex and Gender Information Value Date Recorded Sex Assigned at Not on file Legal Sex Female 2:37 PM EDT Gender Identity Not on file Sexual Orientation Not on file documented as of this encounter Medications at Time of Discharge aspirin 81 MG EC tablet Take 1 tablet by mouth Daily. atorvastatin (LIPITOR) 40 MG tablet Take 1 tablet by mouth Daily. 05/08/2024 cloNIDine (Rmelctim-LOY-0) 0.1 MG/24HR patchIndications:E ssential (primary) hypertension Place 1 patch on the skin as directed by provider 1 (One) Time Per Week. 4 patch 11 06/06/2024 Coenzyme Q10 (CO Q-10 PO) Take by mouth Daily. DULoxetine HCl (DRIZALMA) 20 MG capsule Take 1 capsule by mouth Daily. levothyroxine (SYNTHROID, LEVOTHROID) 25 MCG tablet Take 1 tablet by mouth Every Morning. Magnesium Hydroxide (MAGNESIA PO) Take by mouth Daily. mesalamine (APRISO) 0.375 g 24 hr capsule Take 1 capsule by mouth 3 (Three) Times a Day. 05/18/2023 mesalamine (CANASA) 1000 MG suppository Insert 1 suppository into the rectum As Needed. 07/04/2024 multivitamin tablet tablet Take 1 tablet by mouth Daily. NIFEdipine XL (PROCARDIA XL) 60 MG 24 hr tablet Take 1 tablet by mouth Every Night. omeprazole (priLOSEC) 20 MG capsule Take 1 capsule by mouth As Needed. 12/07/2023 liulds-huqndhykh-p agnesium sulfates (SUPREP) 17.5-3.13-1.6 GM/177ML solution oral solution 06/15/2024 Symbicort 160-4.5 MCG/ACT inhaler Inhale 2 puffs 2 (Two) Times a Day. 07/19/2024 spironolactone (ALDACTONE) 50 MG tablet 07/14/2024 5 documented as of this encounter Plan of Treatment Upcoming Encounters Date Type Department Care Team (Late st Contact Info) Description 11/16/2024 2:15 PM EDT Office Visit [facility] [address] [place] [address] Carol Stewart MD [address] [place] [address] documented as of this encounter Procedures Procedure Name Priority Date/Time Associated Diagnosis Comments TILT TABLE Routine 09/15/2024 9:22 AM EDT Autonomic dysfunction documented in this encounter Results * Tilt Table (09/15/2024 9:22 AM EDT) Target HR (85%) 128 bpm Max. Pred. HR (100%) 151 bpm Anatomical Region Laterality Modality Ultrasound Narrative 09/15/2024 5:37 PM EDT Pt was hypotensive 39 minutes into the test. Matias BP 76/55, subsequent BP 78/57. Pt was diaphoretic at this time and dyspneic. Test terminated premautrely due to persistent hypotension. Heart rate increased appropriately in response to blood pressure decline. Tilt table test was positive for vasovagal/neurocardiogenic syncope. Tilt Table Impression Test terminated early due to near syncope. Tilt table test was positive for orthostatic syncope. Tilt Table Findings Patient placed per protocol. EKG showed normal sinus. The patient exhibited cold sweats, full body weakness. Tilt Table Baseline Initial EKG showed normal sinus. The patient exhibited no symptoms prior to the test. Tilt Table Recovery Recovery EKG showed normal sinus. The patient exhibited cold sweats; full body weakness after the test. us Carol Stewart MD [facility] ORDERABL ES Final Result documented in this encounter Visit Diagnoses Diagnosis Autonomic dysfunction documented in this encounter Care Teams Carbon Dioxide Operator Relationship Specialty Start Date End Date Aleksandar Luciano MD [address] [place] [address] PCP - General Emergency Medicine 02/17/23 documented as of this encounter
--- OUTSIDE RECORDS SUMMARY | 2024-10-04 09:30 | XMS_ITS | Encounter Summary ---
[facility] Address [address] [place] [address] Care Team Providers Care Jeeper Operator Name Role Phone Aleksandar Luciano MD Primary Care Provider [phone] Reason for Visit * Reason Comments Stroke * Consultation (Urgent) - Closed Specialty Diagnoses / Procedures Referred By Lauren harden Referred To Contact Neurology Diagnoses Cryptogenic stroke Procedures MT OFFICE/OUTPATIENT NEW MODERATE MDM 45 MINUTES Carol Stewart MD [address] [place] [address] Phone: tel: fax: Chris Pastor MD [address] [address] Phone: tel: fax: Referral ID Status Reason Start Date Expiration Date V isits Requested Visits Authorized [id number] Closed Specialty Services Required 06/14/2024 09/13/2025 1 1 Encounter Details Date Type Department Care Team (Late st Contact Info) Description 10/04/2024 9:30 AM EDT Office Visit [facility] [address] [facility] [address] [place] [address] Chris Pastor MD [address] [facility] [address] [place] [address] History of stroke without residual deficits (Primary Dx); Episodic lightheadedness; POTS (postural orthostatic tachycardia syndrome) Social History Tobacco Use Types Packs/Day Years Used Date Smoking Tobacco: Never Passive Smoke Exposure: Never Smokeless Tobacco: Never Tobacco Cessation:Counseling Given: Not Answered Alcohol Use Standard Drinks/Week Comments Never 0 (1 standard drink = 0.6 oz pur e alcohol) AUDIT-C Answer Date Recorded Q1: How often do you have a drink containing alc ohol? Never 10/26/2020 Average Number of Drinks Not on file Frequency of Binge Drinking Not on file [...] on file documented as of this encounter Last Filed Vital Signs Vital Sign Reading Time Taken Comments Blood Pressure 134/86 10/04/2024 9:31 AM EDT Pulse 92 10/04/2024 9:31 AM EDT Temperature - - Respiratory Rate - - Oxygen Saturation 98% 10/04/2024 9:31 AM EDT Inhaled Oxygen Concentration - - Weight - - Height - - Body Mass Index - - documented in this encounter Progress Notes * Chris Pastor MD - 10/04/2024 9:30 AM EDT Subjective: CC: Izabela Chadwick is seen today in consultation at the request of Carol Stewart MD for Stroke HPI: Patient is a 69-year-old female with past medical history of hypertension, hyperlipidemia, obstructive sleep apnea referred to the clinic for stroke evaluation. She reports that many years ago, she developed sudden onset of left leg weakness but she did not go to the hospital and received physical therapy with complete resolution of weakness. She most recently was admitted to in Apr 2024 with similar complaint of left leg weakness and left-sided numbness with resolution of symptoms by the time she reached ER. She underwent CT head, CT angiogram of brain and neck. CT head did not reveal any acute intracranial abnormalities. CT angiogram of brain revealed mild stenosis of right M2 and M3 branches. CT angiogram of neck did not reveal any flow-limiting stenosis. MRI brain could not be performed due to presence of loop recorder. This was eventually taken out and she recently had MRI inApril 2024 which I reviewed personally. It showed old left medial occipital lobe stroke, mild to moderate chronic nonspecific white matter changes without any acute intracranial abnormalities. She was instructed to continue aspirin 81 mg daily, Lipitor 40 mg daily for secondary stroke prevention. She reports that she started having dizziness after she received her third COVID-vaccine. This improved significantly after she tried some holistic alternative treatment. However, continued to have very mild dizziness/lightheadedness spells when she would stand up from sitting position because of this, Dr. Stewart ordered tilt table test which was positive and indicative of POTS. The following portions of the patient's history were reviewed today and updated as of 10/04/2024 : allergies, social history, and problem list. This document will be scanned to patient's chart. Current Outpatient Medications: aspirin 81 MG EC tablet, Take 1 tablet by mouth Daily., Disp: , Rfl: atorvastatin (LIPITOR) 40 MG tablet, Take 1 tablet by mouth Daily., Disp: , Rfl: cloNIDine (Qnualclc-YEW-3) 0.1 MG/24HR patch, Place 1 patch on the skin as directed by provider 1 (One) Time Per Week., Disp: 4 patch, Rfl: 11 Coenzyme Q10 (CO Q-10 PO), Take by mouth Daily., Disp: , Rfl: DULoxetine HCl (DRIZALMA) 20 MG capsule, Take 1 capsule by mouth Daily., Disp: , Rfl: levothyroxine (SYNTHROID, LEVOTHROID) 25 MCG tablet, Take 1 tablet by mouth Every Morning., Disp: ,Rfl: Magnesium Hydroxide (MAGNESIA PO), Take by mouth Daily., Disp: , Rfl: mesalamine (APRISO) 0.375 g 24 hr capsule, Take 1 capsule by mouth 3 (Three) Times a Day., Disp: , Rfl: mesalamine (CANASA) 1000 MG suppository, Insert 1 suppository into the rectum As Needed., Disp: , Rfl: multivitamin tablet tablet, Take 1 tablet by mouth Daily., Disp: , Rfl: NIFEdipine XL (PROCARDIA XL) 60 MG 24 hr tablet, Take 1 tablet by mouth Every Night., Disp: , Rfl: omeprazole (priLOSEC) 20 MG capsule, Take 1 capsule by mouth As Needed., Disp: , Rfl: Symbicort 160-4.5 MCG/ACT inhaler, Inhale 2 puffs 2 (Two) Times a Day., Disp: , Rfl: lafpxn-xvsqiffka-xzrhszaxh sulfates (SUPREP) 17.5-3.13-1.6 GM/177ML solution oral solution, , Disp:, Rfl: Past Medical History: Diagnosis Date Carotid artery stenosis 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 Hyperlipidemia Hypertension Mitral insufficiency Sleep apnea baseline AHI 37 TIA (transient ischemic attack) x two Ulcerative colitis Past Surgical History: Procedure Laterality Date CARDIAC ELECTROPHYSIOLOGY PROCEDURE N/A 06/14/2024 Procedure: Loop recorder removal; Surgeon: Carol Stewart MD; Location: [facility]; Service: Cardiovascular; Laterality: N/A; COLONOSCOPY ROTATOR CUFF REPAIR TONSILLECTOMY AND ADENOIDECTOMY TUBAL ABDOMINAL LIGATION WISDOM TOOTH EXTRACTION Family History Problem Relation Age of Onset Diabetes Mother Cancer Mother Stomach cancer Mother Suicidality Father Thyroid disease Sister Diabetes Brother Review of Systems All other systems reviewed and are negative Objective: BP 134/86 Pulse 92 SpO2 98% Neurology Exam: General apperance: NAD. Mental status: Alert, awake and oriented to time place and person. Language and Speech: No aphasia or dysarthria. Naming , Repitition and Comprehension: Can name objects, repeat a sentence and follow commands. Speech is clear and fluent with good repetition, comprehension, and naming. Cranial Nerves: CN II: Visual alberto are full. Intact. Fundi - Normal, No papillederma, Pupils - KARI CN III, IV and : Extraocular movements are intact. Normal saccades. CN V: Facial sensation is intact. CN VII: Muscles of facial expression reveal no asymmetry. Intact. CN VIII: Hearing is intact. Whispered voice intact. CN IX and X: Palate elevates symmetrically. Intact CN XI: Shoulder shrug is intact. CN XII: Tongue is midline without evidence of atrophy or fasciculation. Motor: Right UE muscle strength 5/5. Normal tone. Left UE muscle strength 5/5. Normal tone. Right LE muscle strength5/5. Normal tone. Left LE muscle strength 5/5. Normal tone. Sensory: Normal light touch, vibration and pinprick sensation bilaterally. DTRs: 2+ bilaterally in upper and lower extremities. Babinski: Negative bilaterally. Co-ordination: Normal kmrbpy-js-yeba, heel to thompson B/L. Rhomberg: Negative. Gait: Normal. Cardiovascular: Regular rate and rhythm without murmur, gallop or rub. Assessment and Plan: 1. History of stroke without residual deficits 2. Episodic lightheadedness 3. POTS (postural orthostatic tachycardia syndrome) -Patient with history of left-sided weakness and numbness in April 2024 requiring ED visit to . At that time CT head did not reveal any acute intracranial abnormalities. CT angiogram of brain and neck were done which showed mild right M2 and M3 stenosis, no extracranial vascular abnormalities w ere noted. She could not have MRI due to presence of loop recorder which was taken out in May andshe underwent MRI in June 2024 which I reviewed personally. It shows an old left medial occipital lobe stroke. No evidence of acute stroke. There is also mild to moderate chronic nonspecific white matter changes. I have assured her that the symptoms of lightheadedness and dizziness that she is experiencing is not caused by any of the changes noted on MRI brain. She recently had tilt table test which was positive for POTS and her symptoms are likely caused by the same. I advised her to continueto follow-up with Dr. Stewart regularly for management. From stroke perspective, have advised her to continue aspirin 81 mg daily, Lipitor 40 mg daily, strict blood pressure control for secondary stroke prevention. I advised her to call office with any questions or concerns that she may have otherwise I will see her in clinic as needed. Return if symptoms worsen or fail to improve. Chris Pastor MD Note to patient: The 21st Century Cures Act makes medical notes like these available to patients inthe interest of transparency. However, be advised this is a medical document. It is intended as peer to peer communication. It is written in medical language and may contain abbreviations or verbiagethat are unfamiliar. It may appear blunt or direct. Medical documents are intended to carry relevant information, facts as evident, and the clinical opinion of the physician. documented in this encounter Plan of Treatment Upcoming Encounters Date Type Department Care Team (Late st Contact Info) Description 11/16/2024 2:15 PM EDT Office Visit [facility] [address] [place] [address] Carol Stewart MD [address] [place] [address] Scheduled Referrals Name Type Priority Associated Diagnoses Order Schedule Ambulatory Referral to Neurology Outpatient Referral Routine Cryptogenic stroke Ordered: 06/14/2024 documented as of this encounter Visit Diagnoses Diagnosis History of stroke without residual deficits- Primary Transient ischemic attack (TIA), and cerebral infarction without residual deficits Episodic lightheadedness POTS (postural orthostatic tachycardia syndrome) Unspecified tachycardia documented in this encounter Care Teams Jeeper Operator Relationship Specialty Start Date End Date Aleksandar Luciano MD [address] [place] [address] PCP - General Emergency Medicine 02/17/23 documented as of this encounter
--- OUTSIDE RECORDS SUMMARY | 2024-10-17 12:57 | XMS_ITS | Clinical Summary ---
Author Organization [facility] Address [address] [place] [address] Care Team Providers Care Senior Scrum Master Name Role Phone Aleksandar Luciano MD Primary Care Provider [phone] Allergies Active Allergy Reactions Criticality Noted Date Comments Amlodipine Dizziness Low 11/30/2023 Lisinopril Dizziness Low 01/11/2024 Metoprolol Dizziness Low 01/11/2024 Medications mesalamine (APRISO) 0.375 g 24 hr capsule Take 1 capsule by mouth 3 (Three) Times a Day. 05/18/19 24 Active Magnesium Hydroxide (MAGNESIA PO) Take by mouth Daily. Active omeprazole (priLOSEC) 20 MG capsule Take 1 capsule by mouth As Needed. 12/07/19 24 Active Coenzyme Q10 (CO Q-10 PO) Take by mouth Daily. Active NIFEdipine XL (PROCARDIA XL) 60 MG 24 hr tablet Take 1 tablet by mouth Every Night. Active DULoxetine HCl (DRIZALMA) 20 MG capsule Take 1 capsule by mouth Daily. Active aspirin 81 MG EC tablet Take 1 tablet by mouth Daily. Active atorvastatin (LIPITOR) 40 MG tablet Take 1 tablet by mouth Daily. 05/08/19 25 Active levothyroxine (SYNTHROID, LEVOTHROID) 25 MCG tablet Take 1 tablet by mouth Every Morning. Active cloNIDine (Boreemzo-HWV-5) 0.1 MG/24HR patchIndications :Essential (primary) hypertension Place 1 patch on the skin as directed by provider 1 (One) Time Per Week. 4 patch 11 06/07/19 25 Active sodium-potassium -magnesium sulfates (SUPREP) 17.5-3.13-1.6 GM/177ML solution oral solution 06/16/19 25 Active Symbicort 160-4.5 MCG/ACT inhaler Inhale 2 puffs 2 (Two) Times a Day. 07/20/19 25 Active multivitamin tablet tablet Take 1 tablet by mouth Daily. Active mesalamine (CANASA) 1000 MG suppository Insert 1 suppository into the rectum As Needed. 07/05/19 25 Active spironolactone (ALDACTONE) 50 MG tablet 07/15/19 25 025 Discontin ued(*Ther apy completed ) Active Problems Problem Noted Date Diagnosed Date Nonrheumatic mitral valve stenosis 06/06/2024 Assessment & Plan (06/07/2024 6:43 PM EDT): There is a significant chunk of calcification with some mobility on her mitral valve. In comparison to images of from 2022 this was not there. I would like to do a DORIAN for further assessment. Concerned that this may have caused an embolic stroke. Orders: NPO Diet NPO Type: Strict NPO; Standing midazolam (VERSED) injection 2-8 mg flumazenil (ROMAZICON) injection 0.5 mg fentaNYL citrate (PF) (SUBLIMAZE) injection 50-100 mcg naloxone (NARCAN) injection 0.4 mg methohexital (BREVITAL) injection 20-100 mg Adult Transesophageal Echo (DORIAN) W/ Cont if Necessary Per Protocol; Future Case Request Wet Finisher Wool: Loop recorder removal Dizziness 07/06/2023 Assessment & Plan (06/21/2024 2:24 PM EDT): MRI of the head pending. Will see her back afterwards. Still is post loop recorder removal incision site healing well. Assessment & Plan (01/12/2024 11:15 AM EDT): Happens with mild will different medications and medication classes. She is convinced it is related to low blood pressure. I think it may be more vestibular or other. Assessment & Plan (07/06/2023 10:58 PM EDT): Patient has been experiencing dizziness for quite some time now, symptoms started after receiving the COVID-vaccine. She has been to several specialists, including neurology and ENT. No specific cause for continued dizziness has been found. She has had a complete cardiac workup in the last year, no exact cause of dizziness found. Neurology referred her to physical therapy and she feels like that has helped slightly. She has not had recent labs. - We will check labs to rule out other cause of dizziness. Laboratory exam ordered as p art of routine general medical examination 07/06/2023 Assessment & Plan (07/06/2023 10:55 PM EDT): Labs to check for other possible causes of dizziness. KAILYN (obstructive sleep apnea) 08/21/2022 Assessment & Plan (01/12/2024 11:15 AM EDT): Control of sleep apnea will help her blood pressure as well. Continue PAP therapy. Assessment & Plan (08/27/2022 5:34 PM EDT): Baseline AHI 37 from a study in 2009. Her last titration study was in 2013. She is using a auto BiPAP system 1 that is about 7 years old. She reports that her BiPAP is very old and she is concerned about the function as she is beginning to feel tired even after BiPAP use. Download is reviewed with good control and good compliance. She is benefiting from BiPAP and we plan to continue BiPAP. New prescription to replace her BiPAP and BiPAP supplies to the DME of her choice. Hypertension 08/21/2022 Assessment & Plan (04/06/2024 5:43 PM EST): Orders: Adult Transthoracic Echo Complete W/ Cont if Necessary Per Protocol; Future Assessment & Plan (04/06/2024 5:43 PM EST): Renal Dr. And primary care head been trying to get different MRAs approved. So far too costly. Will try for Aldactone. Orders: spironolactone (ALDACTONE) 25 MG tablet; Take 1 tablet by mouth Daily. Assessment & Plan (01/12/2024 11:15 AM EDT): Hypertension is uncontrolled Medication changes per orders. Dietary sodium restriction. Regular aerobic exercise. Discussed getting heart rate elevated at least over 100 bpm when she is exerting herself. Goal heart rate 129 which is 85% predicted for her age.. Blood pressure will be reassessedin 3 months. Medication nonadherence is also an issue. I think her dizziness may not be medication related but she is convinced that it is. Orders: cloNIDine (Xeicfvuy-INL-2) 0.1 MG/24HR patch; Place 1 patch on the skin as directed by provider 1 (One) Time Per Week. Assessment & Plan (07/06/2023 10:54 PM EDT): Her blood pressure is slightly elevated (146/76), however she is not on a daily medication and only takes clonidine as needed due to frequent hypotensive episodes. Because of dizziness and falls we will keep blood pressure as is for now. Assessment & Plan (08/27/2022 5:41 PM EDT): Pressure 136/78 today. This is well controlled. She is on lisinopril 40 mg. She is also on BiPAP therapy. She is encouraged to continue BiPAP as untreated sleep apnea may potentiate hypertension. Right bundle branch block (RBBB) on electrocardi ogram (ECG) 08/21/2022 Assessment & Plan (08/27/2022 5:37 PM EDT): EKG today showing sinus rhythm heart rate 87 and a right bundle branch block. She reports it has been many years since she has had an EKG. I located an EKG from 12/20/2013 that was sinus rhythm but did not have a right bundle branch block. She has coexisting hypertension and sleep apnea. Consider further evaluation with echocardiogram to consider pulmonary hypertension. Denies any chest pain or shortness of breath. Bilateral carotid artery stenosis 08/21/2022 Assessment & Plan (08/27/2022 5:34 PM EDT): Noted carotid duplex from 11/08/2015 showing moderate stenosis on the right and mild stenosis on the left. She is not aware of any follow-up studies. Plan carotid duplex for further evaluation and treatment. Borderline abnormal TFTs 10/26/2020 Assessment & Plan (10/26/2020 9:21 AM EDT): It is intriguing that her symptoms improved with levothyroxine. Her thyroid is structurally normal. Her tpo antibodies were negative Her most recent tft's were normal It's possible that her thyroid could be fluctuating. We will need to monitor Ulcerative colitis Assessment & Plan (06/21/2024 2:24 PM EDT): Due for colonoscopy every 5 years. Scheduled for Thursday. I have asked her to wait till after MRI of the head. Resolved Problems Problem Noted Date Diagnosed Date Resolved Date History of loop recorder 06/06/2024 Assessment & Plan (06/07/2024 6:43 PM EDT): Plan to explant loop recorder so that we can get an MRI and further workup for neurologic issues. Orders: NPO Diet NPO Type: Strict NPO; Standing midazolam (VERSED) injection 2-8 mg flumazenil (ROMAZICON) injection 0.5 mg fentaNYL citrate (PF) (SUBLIMAZE) injection 50-100 mcg naloxone (NARCAN) injection 0.4 mg methohexital (BREVITAL) injection 20-100 mg Adult Transesophageal Echo (DORIAN) W/ Cont if Necessary Per Protocol; Future Case Request Wet Finisher Wool: Loop recorder removal Encounters Date Type Department Care Team Description 10/14/2024 Telephone [facility] [address] [place] [address] Tanya Craig MA 10/04/2024 9:30 AM EDT Office Visit [facility] [address] [place] [address] Chris Pastor MD History of stroke without residual deficits (Primary Dx); Episodic lightheadedness; POTS (postural orthostatic tachycardia syndrome) 10/04/2024 Travel 09/27/2024 Telephone [facility] [address] [place] [address] Carol Stewart MD Results 09/15/2024 7:49 AM EDT - 09/15/2024 11:59 PM EDT Hospital Encounter [facility] [place] [address] [place] [address] Carol Stewart MD Autonomic dysfunction Discharge Disposition: Home or Self Care 09/15/2024 Travel 07/25/2024 11:00 AM EDT Office Visit [facility] [address] [address] Carol Stewart MD Autonomic dysfunction (Primary Dx); Essential (primary) hypertension; Cryptogenic stroke 07/25/2024 Travel from Last 3 Months Immunizations Immunization Administration Dates Next Due Tdap 10/19/2022() Family History Medical History Relation Name Comments Diabetes Brother Suicidality Father Cancer Mother Diabetes Mother Stomach cancer Mother Thyroid disease Sister Relation Name Status Comments Brother Father Mother Sister Alive Social History Tobacco Use Types Packs/Day Years [...] on file Sexual Orientation Not on file Last Filed Vital Signs Vital Sign Reading Time Taken Comments Blood Pressure 134/86 10/04/2024 9:31 AM EDT Pulse 92 10/04/2024 9:31 AM EDT Temperature 36.2 C (97.1 F) 06/14/2024 12:35 PM EDT Respiratory Rate 16 06/14/2024 2:33 PM EDT Oxygen Saturation 98% 10/04/2024 9:31 AM EDT Inhaled Oxygen Concentration - - Weight 98.9 kg (218 lb) 07/25/2024 10:51 AM EDT Height 170.2 cm (5' 7 ) 07/25/2024 10:51 AM EDT Body Mass Index 34.14 07/25/2024 10:51 AM EDT Plan of Treatment Upcoming Encounters Date Type Department Care Team (Late st Contact Info) Description 11/16/2024 2:15 PM EDT Office Visit [facility] [address] [place] [address] Carol Stewart MD [address] [place] [address] Health Maintenance Due Date Last Done Comments MAMMOGRAM 1995 COLOGUARD 06/28/2000 COLON CANCER SCREENING 5 YEA R SIGMOIDOSCOPY 06/28/2000 COLONOSCOPY 06/28/2000 COLORECTAL CANCER SCREENING 06/28/2000 CT COLONOGRAPHY 06/28/2000 FECAL OCCULT BLOOD TEST 06/28/2000 FIT Testing (1 year) 06/28/2000 Pneumococcal Vaccine 50+ (1 of 1 - PCV) 06/28/2005 ANNUAL WELLNESS VISIT 07/17/2020 HEPATITIS C SCREENING 07/17/2020 COVID-19 Vaccine ( season) 2023 02/07/2021, 05/12/2020, 04/14/2020 INFLUENZA VACCINE 12/21/2024 12/26/2021 DXA SCAN 01/30/2025 01/30/2023 TDAP/TD VACCINES (2 - Td or Tdap) 03/27/2027 018 ZOSTER VACCINE Completed 05/07/2021, 12/06/2020 Procedures Procedure Name Priority Date/Time Associated Diagnosis Comments TILT TABLE Routine 09/15/2024 9:22 AM EDT Autonomic dysfunction from Last 3 Months Results * Tilt Table (09/15/2024 9:22 AM [...] sweats; full body weakness after the test. Carol Stewart MD [facility] ORDERABL ES Final Result from Last 3 Months Insurance [employer] PPO Care Teams Senior Scrum Master Relationship Specialty Start Date End Date Aleksandar Luciano MD [address] [place] [address] PCP - General Emergency Medicine 02/17/23
--- OUTSIDE RECORDS SUMMARY | 2024-10-17 12:57 | XMS_ITS | Encounter Summary ---
Author Organization [facility] Address [address] [place] [address] Care Team Providers Care Aoc Plans Intelligence Officer Chief Name Role Phone Aleksandar Luciano MD Primary Care Provider [phone] Encounter Details Date Type Department Care Team (Late st Contact Info) Description 07/13/2024 Results Follow-Up [facility] [address] [place] [address] Carol Stewart MD [address] [place] [address] Social History Tobacco Use Types Packs/Day Years [...] on file documented as of this encounter Plan of Treatment Upcoming Encounters Date Type Department Care Team (Late st Contact Info) Description 11/16/2024 2:15 PM EDT Office Visit [facility] [address] [place] [id number] Carol Stewart MD [address] [place] [address] documented as of this encounter Visit Diagnoses Not on filedocumented in this encounter Care Teams Aoc Plans Intelligence Officer Chief Relationship Specialty Start Date End Date Aleksandar uLciano MD [address] [place] [address] PCP - General Emergency Medicine 02/17/23 documented as of this encounter
--- OUTSIDE RECORDS SUMMARY | 2024-10-17 12:58 | XMS_ITS | Encounter Summary ---
Author Organization [facility] Address [address] [place] [address] Care Team Providers Care Crop Production Advisor Name Role Phone Aleksandar Luciano MD Primary Care Provider [phone] Encounter Details Date Type Department Care Team (Latest Contact Info) Description 09/15/2024 Travel Social History Tobacco Use Types Packs/Day Years [...] Description 11/16/2024 2:15 PM EDT Office Visit [facility] [address] [place] [id number] Carol Stewart MD [address] [place] [address] documented as of this encounter Visit Diagnoses Not on filedocumented in this encounter Care Teams Crop Production Advisor Relationship Specialty Start Date End Date Aleksandar Luciano MD [address] [facility] [place] [address] PCP - General Emergency Medicine 02/17/23 documented as of this encounter
--- OUTSIDE RECORDS SUMMARY | 2024-10-17 12:58 | XMS_ITS | Encounter Summary ---
Author Organization [facility] Address [address] [place] [address] Care Team Providers Care Fishing Accessories Maker Name Role Phone Andrae Hull MD Primary Care Provider [phone] Aleksandar Luciano MD Primary Care Provider [phone] Encounter Details Date Type Department Care Team (Late st Contact Info) Description 11/24/2022 Orders Only External Location [address] [place] [address] Provider, External Social History Tobacco Use Types Packs/Day Years Used Date Smoking Tobacco: Never Assessed Comments Unknown Sex and Gender Information Value Date Recorded Sex Assigned at Not on file Legal Sex Female 6:56 PM EDT Gender Identity Not on file Sexual Orientation Not on file documented as of this encounter Plan of Treatment Not on file documented as of this encounter Procedures Procedure Name Priority Date/Time Associated Diagnosis Comments CT NEURO OUTSIDE IMAGES 11/24/2022 12:59 PM EDT documented in this encounter Results * CT NEURO OUTSIDE IMAGES (11/24/2022 12:59 PM EDT) Anatomical Region Laterality Modality Computed Tomogra phy 11/24/2022 12:5 9 PM EDT us External Provider IMG CT PROCEDURES Final Result documented in this encounter Visit Diagnoses Not on filedocumented in this encounter Additional Health Concerns Infection Onset Date Last Indicated Resolved Time COVID-19 Rule-Out 05/07/2024 05/07/202405/0705/07/2024 11:06 AM EST Influenza 05/07/2024 05/07/2024 06/04/2024 9:53 PM EDT Respiratory Rule-Out 05/08/2024 05/08/2024 025 5:23 AM EST documented as of this encounter Care Teams Fishing Accessories Maker Relationship Specialty Start Date End Date Andrae Hull MD [address] [facility] [place] [address] PCP - General 08/03/20 05/08/24 Aleksandar Luciano MD [address] [facility] [address] [address] PCP - General 05/09/24 documented as of this encounter
--- OUTSIDE RECORDS SUMMARY | 2024-10-17 12:58 | XMS_ITS | Data Portability ---
Author Organization [employer] [facility] Address [address] [place] [place] [address] Care Team Providers Care Filter Cloth Maker Name Role Phone MARIAN HOOPER Primary Care Provider Assessment No assessment recorded. Plan of Treatment Reminders Order Date Submit Date Provider Last Modified By Organization Details Last Modified Time Details Appointments None record ed. Lab urinal ysis, dipsti ck 2022 023 [id number] [facility], [address] [place] [address], [phone], 3 08:57:58 Referral None record ed. Procedures None record ed. Surgeries None record ed. Imaging None record ed. Medication Orders cyclob enzapr ine 10 mg tablet 2021 022 nora [facility] [id number], [address] [employer], [address], [address], 3 12:31:17 Patient TargetsNo targets recorded. Patient Instructions Encounter Date Encounter Id Patient Instructions Last Modified By Organization Details Last Modified Time 12/03/2021 [id number] F/u in 5-7 days if not improved, then recommend chest x-ray with rib detail. [email or web address] Not available 12/03/2021 14:04:06 Reason for Referral None Reported. Results Created Date Observation Date Name Description Value Unit Range Abnormal Flag Note LastModifiedBy Organization Detail LastModifiedTime 06/04/19 23 06/03/2022 urina lysis , dipst ick Leukocytes Negati ve Not Available [facility] [address] [place] [address], [phone], 06/03/2022 12:35:07 06/04/19 23 06/03/2022 urina lysis , dipst ick Nitrite negati ve Not Available [facility] [address] [place] [address], [phone], 06/03/2022 12:35:07 06/04/19 23 06/03/2022 urina lysis , dipst ick Urobilinogen .2 Not Available [facility] [address] [place] [address], [phone], 06/03/2022 12:35:07 06/04/19 23 06/03/2022 urina lysis , dipst ick Protein Negati ve Not Available [facility] [address] [place] [address], [phone], 06/03/2022 12:35:07 06/04/19 23 06/03/2022 urina lysis , dipst ick pH 7.0 Not Available [facility] [address] [place] [address], [phone], 06/03/2022 12:35:07 06/04/19 23 06/03/2022 urina lysis , dipst ick Blood Negati ve Not Available [facility] [address] [place] [address], [address], 06/03/2022 12:35:07 06/04/19 23 06/03/2022 urina lysis , dipst ick Specific Bostic 1.010 Not Available [facility] [address] [place] [address], [phone], 06/03/2022 12:35:07 06/04/19 23 06/03/2022 urina lysis , dipst ick Ketone Negati ve Not Available [facility] [address] [place] [address], [address], 06/03/2022 12:35:07 06/04/19 23 06/03/2022 urina lysis , dipst ick Bilirubin Negati ve Not Available [facility] [address], [address], 06/03/2022 12:35:07 06/04/19 23 06/03/2022 urina lysis , dipst ick Glucose Negati ve Not Available [facility] [address], [address], 06/03/2022 12:35:07 06/04/19 23 06/03/2022 urina lysis , dipst ick Appearance Clear Not Available [facility] [address], [address], 06/03/2022 12:35:07 06/04/19 23 06/03/2022 urina lysis , dipst ick Color Yellow Not Available [facility] [address], [address], 06/03/2022 12:35:07 Result Notes None recorded. 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 Medical Equipment None Reported. Allergies No known drug allergies Medications Name Sig Start Date Stop Date Status Note LastModified by Organization Details LastModified Time cyclobenzapri ne 10 mg tablet Take 1 tablet 3 times a day by oral route for 10 days. 06/03 completed Not Available Not Available Not Available clonidine HCl 0.1 mg tablet active Not Available Not Availabl e Not Available metoprolol succinate ER 50 mg tablet,extend ed release 24 hr active Not Available Not Available Not Available lisinopril 20 mg tablet active Not Available Not Available No t Available levothyroxine 25 mcg tablet active Not Available Not Availabl e Not Available omeprazole 20 mg capsule,delay ed release active Not Available Not Available N ot Available lisinopril 40 mg tablet active Not Available Not Available No t Available mesalamine 1,000 mg rectal suppository active Not Available Not Available Not Available atorvastatin 12/03 completed Not Available Not Available Not Available aspirin 06/03 completed Not Available Not Available Not Available clonidine 2021 active Not Available Not Available Not Avai lable omeprazole 12/03 completed Not Available Not Available Not Available metoprolol tartrate 50mg 2021 active Not Available Not Available Not Avai lable lisinopril 2021 active Not Available Not Available Not Avai lable Vitamin 12/03 completed Not Available Not Available Not Available mesalamine 1.2 gram tablet,delaye d release active Not Available Not Available No t Available Lialda 2021 active Not Available Not Available Not Avai lable Align (B.infantis) 2021 active Not Available Not Available Not Avai lable Vitals Date Recorded Body height Body mass index (BMI) Body weight Body temperature Heart rate Oxygen saturation Oxygen saturation in Arterial blood by Pulse oximetry Systolic And Diastolic Provider Name and Address Organization Details Last Updated DateTime 3 171.45 cm 37.7 kg/m2 350288. 26 g 98 [degF] 78 /min 97 % 97 % 140/90 mm[Hg] [employer] 3 12:43:12 Date Recorded Body weight Body mass index (BMI) Body height Body temperature Heart rate Oxygen saturation Oxygen saturation in Arterial blood by Pulse oximetry Systolic And Diastolic Provider Name and Address Organization Details Last Updated DateTime 2 845186. 54 g 37.7 kg/m2 171.45 cm 97.6 [degF] 86 /min 99 % 99 % 142/84 mm[Hg] [employer] 10:10:52 Social History Question Answer Notes LastModified by Organizat ion Details LastModified Time Tobacco Smoking Status Never Smoker SocialHist oryQuestio n: 'Tobacco/A lcohol/Sup plements'; SocialHist oryRespons e: 'Never Smoker'; Not Available [facility] 11/26/2021 22:55:55 Are You Blind Or Do You Have Difficulty Seeing? Yes Wears Glasses Information not available 06/03/2022 What Is Your Level Of Caffeine Consumption? Occasional Information not available 06/03/2022 In The 14 Days Before Symptom Onset, Have You Had Close Contact With A Laboratory-confi rmed COVID-19 While That Case Was Ill? No Information not available 06/03/2022 In The 14 Days Before Symptom Onset, Have You Had Close Contact With A Person Who Is Under Investigation For COVID-19 While That Person Was Ill? No Information not available 06/03/2022 Have You Been To An Area Known To Be High Risk For COVID-19? No Information not available 06/03/2022 Are You Deaf Or Do You Have Serious Difficulty Hearing? No Information not available 06/03/2022 What Type Of Diet Are You Following? REGULAR Information not available 12/03/2021 Who Is Your Employer? [employer] Information not available 12/03/2021 Have There Been Any Changes To Your Family Or Social Situation? No Information not available 06/03/2022 How Many Times In The Past Year Have You Used An Illegal Drug Or Used A Prescription Medication For Nonmedical Reasons? 0 Information not available 06/03/2022 What Was The Date Of Your Most Recent Tobacco Screening? 06/03/2022 Information not available 06/03/2022 What Is Your Relationship Status? Single Information not available 12/03/2021 Do You Use Your Seat Belt Or Car Seat Routinely? Yes Information not available 06/03/2022 Are You Passively Exposed To Smoke? No Information not available 06/03/2022 Are There Any Smokers In Your House? No Information not available 06/03/2022 Do You Participate In Social Media? No Information not available 06/03/2022 Has Tobacco Cessation Counseling Been Provided? No Information not available 06/03/2022 Have You Recently Traveled Abroad? No Information no t available 06/03/2022 Do You Have Difficulty Walking Or Climbing Stairs? No Information no t available 06/03/2022 Do You Have Any Dietary Restrictions? No Information not available 12/03/2021 Sex: Female Functional Status Question Answer Note LastModified by Organizat ion Details LastModified Time Do you use any illicit or recreational drugs? No Information not available 06/03/2022 Do you or have you ever used any other forms of tobacco or nicotine? No Information not available 12/03/2021 What is your level of alcohol consumption? None Information not available 12/03/2021 Are you currently employed? Yes Information not available 12/03/2021 Do you have transportation difficulties? No Information not available 06/03/2022 Are you able to walk? YESWOREST Information not available 06/03/2022 Do you have difficulty doing errands alone? No Information not available 06/03/2022 Are you able to care for yourself independently? 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 No Information not available 06/03/2022 Mental Status Question Answer Note LastModified by Organizat ion Details LastModified Time Do you feel stressed (tense, restless, nervous, or anxious, or unable to sleep at night)? [id number] Information not available 12/03/2021 Do you have difficulty concentrating, remembering or making decisions? No Information n ot available 06/03/2022 Family History Relationship Description Onset Age of this Age Resolved Age Notes LastModified by Organization Details LastModified Time Unspecified Relation Family history of congestive heart failure Relati ve: ''; [email or web address] Not available 11/26/2021 23:01:07 Unspecified Relation Family history of Myocardial infarction Relati ve: ''; [email or web address] Not available 11/26/2021 23:01:07 Unspecified Relation Family history of Hypertension Relati ve: ''; [email or web address] Not available 11/26/2021 23:01:07 Medical History Condition Response Hypertension Y Hypothyroidism Y Gynecological HistoryNo gynecological history recorded. Obstetrics History GPAL:G 0 P 0 0 0 0 Past Encounters Encounter ID Performer Location Encounter Start Date Encounter Closed Date Diagnosis/Indication Diagnosis SNOMED-CT Code Diagnosis ICD10 Code Diagnosis Note [id number] Tosha Jeff PA-C [employer] [facility] [address] [place] [address] 12/03/2021 08:24:33 12/09/2021 10:53:38 Anterior chest wall pain 823069433 R07.89 Explained nature of muscle strain due to traumatic injury. Recommend heat, rest for 5-7 days with no lifting or pulling, or strenuous exercise. Patient taking Aleve once daily with some improvemen t. Recommend taking for pain prn but with food. Muscle strain 79216600 T 14.8XXA Heat followed by rest. Do not take Flexeril before or while driving. Body mass index 30+ - obesity 442680701 Z68.37 Healthy diet and regular exercise program. 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 See details on form in chart. Body mass index 30+ - obesity 029804022 Z68.37 Healthy diet and regular exercise program. Tobacco non-user 5270469 001 29138 Z13.89 Health Concerns Section Related Observation LastModified by Organization Detai ls LastModified Time None Recorded Concern Status LastModified by Organization Details LastModified Time None Recorded Advance Directives Directive None Recorded Payers Insurance Date Sequence Insurance Name Policy Number Policy Colon Covered Member ID Colon Member ID Guarantor Name 06/03/2022 1 [place] [id number] Izabela Chadwick [id number] Izabela Chadwick OBGyn Episode No OBEpisode recorded.
--- OUTSIDE RECORDS SUMMARY | 2024-10-17 12:58 | XMS_ITS | Patient Health Record ---
Author Organization [facility] Address [address] [facility] [address] [place] [address] Care Team Providers Care Diesel Power Mechanic Name Role Phone Tanya Pierson Unavailable [phone] Reason For Referral No Information Problems Problem Type SNOMED Code ICD Code Onset Dates Problem Status W/U Status Risk Notes Problem Cervix prolapsed into vagina (865790765) Cervix prolapsed into vagina (N81.2) 9 Active confirmed Pelvic Organ Prolapse Plan Of Treatment No Information Medical (General) History Medical History History ICD Code obesity stroke 2 mini strokes ulcerative colitis POP METOPROLOL TARTRATE TABLET ASPIRIN ADULT TABLET ABARSAFIN ALDACTONE TABLET Surgical History Surgery Date(Month/Year) sx tubula
--- OUTSIDE RECORDS SUMMARY | 2024-10-17 12:58 | XMS_ITS | Encounter Summary ---
Author Organization Healthcare Address [address] [place] [address] Care Team Providers Care Automotive Internet Sales Consultant Name Role Phone Aleksandar Luciano MD Primary Care Provider [phone] Encounter Details Date Type Department Care Team (Late st Contact Info) Description 08/17/2024 Refill [place] [facility] [address] [place] [address] RashiEarl chaudhari, CHAIR [address] [place] [address] Hypothyroidism, unspecified type Social History Tobacco Use Types Packs/Day Years Used Date Smoking Tobacco: Never Smokeless Tobacco: Never Alcohol Use Standard Drinks/Week Comments Never 0 (1 standard drink = 0.6 oz pur e alcohol) CAGE ASSESSMENT Answer Date Recorded Cage unable to access Not on file 05/06/2024 Cage max number of drinks Not on file 2024 Cage Beverages a week Not on file 05/06/2024 Have you ever felt you should CUT down on your d rinking? 0 05/06/2024 Have you been ANNOYED by people criticizing your drinking? 0 05/06/2024 Have you felt GUILTY about your drinking? 0 05/06/2024 Have you had a drink first t kassi in the morning ([employer] CONTROL SPECIALIST) to steady your nerves or to get rid of a hangover? 0 05/06/2024 CAGE Questionnaire Score 0 025 Comments No Sex and Gender Information Value Date Recorded Sex Assigned at Not on file Legal Sex Female 6:56 PM EDT Gender Identity Not on file Sexual Orientation Not on file documented as of this encounter Plan of Treatment Not on file documented as of this encounter Visit Diagnoses Diagnosis Hypothyroidism, unspecified type documented in this encounter Additional Health Concerns Assessment Noted Time A fall risk assessment has been complete d for the patient 07/15/2024 1:39 PM EDT A Body Mass Index follow-up plan has been documented for the patient 07/15/2024 3:35 PM EDT documented as of this encounter Care Teams Automotive Internet Sales Consultant Relationship Specialty Start Date End Date Aleksandar Luciano MD [address] [place] [address] PCP - General 05/09/24 documented as of this encounter
--- OUTSIDE RECORDS SUMMARY | 2024-10-17 12:58 | XMS_ITS | Encounter Summary ---
Author Organization Healthcare Address [address] [place] [address] Care Team Providers Care Stock Dealer Name Role Phone Andrae Hull MD Primary Care Provider [phone] Aleksandar Luciano MD Primary Care Provider [phone] Encounter Details Date Type Department Care Team (Late st Contact Info) Description 11/26/2022 Orders Only External Location [address] [place] [address] Provider, External Social History Tobacco Use Types [...] Procedure Name Priority Date/Time Associated Diagnosis Comments MR NEURO OUTSIDE IMAGES 11/26/2022 8:33 AM EDT documented in this encounter Results * MR NEURO OUTSIDE IMAGES (11/26/2022 8:33 AM EDT) Anatomical Region Laterality Modality Magnetic Resonan ce 11/26/2022 8:33 AM EDT us External Provider IMG MRI PROCEDURES Final Resul t documented in this encounter Visit Diagnoses Not on filedocumented in this encounter Additional Health Concerns Infection Onset Date Last Indicated Resolved Time COVID-19 Rule-Out 05/07/2024 05/07/2024 05/07/2024 11:06 AM EST Influenza 05/07/2024 05/07/2024 06/04/2024 9:53 PM EDT Respiratory Rule-Out 05/08/2024 05/08/2024 025 5:23 AM EST documented as of this encounter Care Teams Stock Dealer Relationship Specialty Start Date End Date Andrae Hull MD [address] [facility] [place] [address] PCP - General 08/03/20 05/08/24 Aleksandar Luciano MD [address] [facility] [place] [address] PCP - General 05/09/24 documented as of this encounter
--- OUTSIDE RECORDS SUMMARY | 2024-10-17 12:58 | XMS_ITS | Encounter Summary ---
[facility] Organization [facility] Address [address] [place] [address] Care Team Providers Care Director Of Blood Name Role Phone Aleksandar Luciano MD Primary Care Provider [phone] Reason for Visit * Reason Onset Date Comments Results 09/27/2024 Encounter Details Date Type Department Care Team (Late st Contact Info) Description 09/27/2024 Telephone [facility] [address] [place] [address] Carol Stewart MD [address] [place] [address] Results Social History Tobacco Use Types Packs/Day Years [...] on file documented as of this encounter Miscellaneous Notes * Telephone Encounter - Rajwinder Archer RegSched Rep - 09/29/2024 1:40 PM EDT Spoke to patient. She verbalizes understanding. * Telephone Encounter - Carol Stewart MD - 09/29/2024 12:29 PM EDT Yes still see the neurologist The vaccine has not been known to cause this but long COVID can cause this. * Telephone Encounter - Tanya Craig MA - 09/29/2024 11:30 AM EDT Pt notified and verbalized understanding. She would like to know if she still needs to see the neurologist next wk and did the COVID vaccine cause this. * Telephone Encounter - Chantell Uribe APRN - 09/29/2024 10:42 AM EDT Last note looks like Dr. Stewart was taking her about this diagnosis of POTS already. Positive tilt table indicates that she does have POTS. Dr. Stewart has given instructions to stop diuretics. To take in fluids and gator aid But go ahead and review the all POTS instruction sheet with the patient and mail her an instruction sheet or if she has My Chart the place copy in her chart . Dr. Stewart's last note indicated that she was to have afollow up in OCT but noted no follow up appointment. She needs help scheduling follow up appointment. * Telephone Encounter - Tanya Craig MA - 09/29/2024 9:14 AM EDT Can you give me more info to give pt please? I know she will have questions. * Telephone Encounter - Chantell Uribe APRN - 09/27/2024 4:30 PM EDT May call patient with tilt table results: Tilt table test was positive for vasovagal/neurocardiogenic syncope * Telephone Encounter - Earl Ca RegSched Rep - 09/27/2024 2:31 PM EDT Caller: Izabela Chadwick Relationship: Self Best call back number: [phone] Caller requesting test results: PT What test was performed: TILT TABLE When was the test performed: 09.15.24 Where was the test performed: [facility] documented in this encounter Plan of Treatment Upcoming Encounters Date Type Department Care Team (Late st Contact Info) Description 11/16/2024 2:15 PM EDT Office Visit [facility] [address] [place] [address] Carol Stewart MD [address] [place] [address] documented as of this encounter Visit Diagnoses Not on filedocumented in this encounter Care Teams Director Of Blood Relationship Specialty Start Date End Date Aleksandar Luciano MD [address] [place] [address] PCP - General Emergency Medicine 02/17/23 documented as of this encounter
--- OUTSIDE RECORDS SUMMARY | 2024-10-17 12:58 | XMS_ITS | Encounter Summary ---
[facility] Address [address] [place] [address] Care Team Providers Care Security Flex Utility Officer Name Role Phone Aleksandar Luciano MD Primary Care Provider [phone] Reason for Visit * Reason Comments Med Refill Encounter Details Date Type Department Care Team (Late st Contact Info) Description 05/20/2023 Refill [facility] [address] [place] [address] Lucila Coleman APRN [address] [place] [address] Med Refill Social History Tobacco Use Types Packs/Day Years [...] Feels Unsafe at Home or Work/School no 10/19/2022 Feels Threatened by Someone no 09/22 Does Anyone Try to Keep You From Having Contact with Others or Doing Things Outside Your Home? no 10/19/2022 Physical Signs of Abuse Present no 10/19/2022 Comments Unknown Sex and Gender Information Value Date Recorded Sex Assigned at Not on file Legal Sex Female 2:37 PM EDT Gender Identity Not on file Sexual Orientation Not on file documented as of this encounter Plan of Treatment Upcoming Encounters Date Type Department Care Team (Late st Contact Info) Description 11/16/2024 2:15 PM EDT Office Visit [facility] [address] [place] [place] [address] Carol Stewart MD [address] [place] [address] documented as of this encounter Visit Diagnoses Not on filedocumented in this encounter Care Teams Security Flex Utility Officer Relationship Specialty Start Date End Date Aleksandar Luciano MD [address] [place] [address] PCP - General Emergency Medicine 02/17/23 documented as of this encounter
--- OUTSIDE RECORDS SUMMARY | 2024-10-17 12:58 | XMS_ITS | Encounter Summary ---
[facility] Address [address] [place] [address] Care Team Providers Care Systems Programmer Analyst Name Role Phone Aleksandar Luciano MD Primary Care Provider [phone] Reason for Visit * Reason Comments Med Refill Encounter Details Date Type Department Care Team (Late st Contact Info) Description 03/17/2024 Refill [facility] [address] [place] [address] Chantell Uribe, WASHHOUSE WORKER [address] [place] [id number] Med Refill Social History Tobacco Use Types [...] Description 11/16/2024 2:15 PM EDT Office Visit [facility] [address] [place] [address] Carol Stewart MD [address] [place] [address] documented as of this encounter Visit Diagnoses Diagnosis Essential (primary) hypertension Unspecified essential hypertension documented in this encounter Care Teams Systems Programmer Analyst Relationship Specialty Start Date End Date Aleksandar Luciano MD [address] [place] [address] PCP - General Emergency Medicine 02/17/23 documented as of this encounter
--- OUTSIDE RECORDS SUMMARY | 2024-10-17 12:58 | XMS_ITS | Clinical Summary ---
Author Organization [facility] Address [address] [place] [address] Care Team Providers Care Locomotive Crane Operator Name Role Phone Aleksandar Luciano MD Primary Care Provider [phone] Allergies Active Allergy Reactions Criticality Noted Date Comments Amlodipine Dizziness Low 11/30/2023 Lisinopril Dizziness Low 01/11/2024 Metoprolol Dizziness Low 01/11/2024 Medications cloNIDine (Catapres-TTS) 0.3 MG/24HR Place 1 patch on the skin 1 (one) time per week. Active mesalamine ER (Apriso) 0.375 g 24 hr capsule Take 4 capsules (1.5 g) by mouth daily. Do not crush or chew. Active NIFEdipine CC (Adalat CC) 60 MG 24 hr tablet Take 1 tablet (60 mg) by mouth daily. Do not crush, chew, or split. Active spironolactone (Aldactone) 50 MG tablet Take 1 tablet (50 mg) by mouth daily. Active coenzyme Q-10 200 MG capsule Take 1 capsule (200 mg) by mouth daily. Active lactobacillus (Culturelle Immunity Support) capsule Take 1 capsule by mouth daily. Active ascorbic acid (Vitamin C) 500 MG tablet Take 1 tablet (500 mg) by mouth daily. Active magnesium hydroxide (Almanza Chews) 311 MG chewable tablet Chew 2 tablets (622 mg) daily. Active atorvastatin (Lipitor) 40 MG tablet Take 1 tablet (40 mg) by mouth daily. 30 tablet 2 5 Active aspirin 81 MG EC tablet Take 1 tablet by mouth 1 time each day. 7 Active Multiple Vitamin (multivitamin) tablet Take 1 tablet by mouth daily. Active DULoxetine (Cymbalta) [address] capsule 5 Active multivitamin (Theragran-M) tablet Take 1 tablet by mouth 1 time each day. Active omeprazole (PriLOSEC) [address] capsule Take 1 capsule by mouth as needed. 6 Active levothyroxine (Synthroid, Levoxyl) 25 MCG tabletIndication s:Hypothyroidism , unspecified type Take 1 tablet by mouth daily before breakfast. 30 tablet 5 Active Resolved Problems Problem Noted Date Diagnosed Date Resolved Date Stroke-like symptoms 05/06/2024 025 Encounters Date Type Department Care Team Description 08/17/2024 Refill [place] [facility] [address] [place] [address] Earl Markham, MAGO Hypothyroidism, unspecified type from Last 3 Months Immunizations Immunization Administration Dates Next Due Hep A, Adult 04/25/2019,10/13/2018 Hep B, Unspecified 08/13/1995 Influenza, high-dose, quadrivalent 12/26/2021 Tdap 03/27/2017 Zoster, Recombinant 05/07/2021,12/06/2020 Family History Medical History Relation Name Comments Lupus Daughter Diabetes Grandson Relation Name Status Comments Daughter Alive Grandson Alive Social History Tobacco Use Types Packs/Day Years Used Date Smoking Tobacco: Never Smokeless Tobacco: Never Tobacco Cessation:Counseling Given: [...] drink first 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 0 05/06/2024 CAGE Questionnaire Score 0 025 Comments No Sex and Gender Information Value Date Recorded Sex Assigned at Not on file Legal Sex Female 6:56 PM EDT Gender Identity Not on file Sexual Orientation Not on file Last Filed Vital Signs Vital Sign Reading Time Taken Comments Blood Pressure 142/84 07/15/2024 1:42 PM EDT Pulse 69 07/15/2024 1:42 PM EDT Temperature 37 C (98.6 F) 05/08/2024 11:20 AM EST Respiratory Rate 17 05/08/2024 11:20 AM EST Oxygen Saturation 95% 07/15/2024 1:42 PM EDT Inhaled Oxygen Concentration - - Weight 99 kg (218 lb 4.1 oz) 07/15/2024 1:42 PM EDT Height 170.2 cm (5' 7 ) 07/15/2024 1:42 PM EDT Body Mass Index 34.18 07/15/2024 1:42 PM EDT Plan of Treatment Health Maintenance Due Date Last Done Comments [facility]-Bone Density Scan 1955 [facility]-Depression Screening 1955 [facility]-Medicare Annual Wellness (AWV) 1955 [facility]-Infant/Child/Adol SDOH Screenings 1955 [facility]- SDOH Screenings 06/28/1973 [facility]-Adult SDOH Screenings 06/28/1973 CT Colonography 06/28/2000 Colonoscopy 06/28/2000 FIT-DNA 06/28/2000 FIT 06/28/2000 FOBT 06/28/2000 Sigmoidoscopy 06/28/2000 [facility]-Colorectal Cancer Screening 06/28/2000 [facility]-Breast Cancer Screening 06/28/2005 [facility]-Pneumococcal Vaccine: 50 + Years (1 of 1 - PCV) 06/28/2005 [facility]-RSV Vaccine: 60+ Years o r (1 - Risk 60-74 years 1-dose series) 2015 [id number] Vaccine ( season) 2023 02/07/2021, 05/12/2020, 04/14/2020 [facility]-Influenza Vaccine (#1) 2024 12/26/2021 [facility]-DTaP,Tdap,and Td Vaccine s (2 - Td or Tdap) 03/27/2027 03/27/2017 [facility]-Hepatitis A Vaccines Aged Out 020, 10/13/2018 No longer eligible based on patient's age to complete this topic [facility]-Hepatitis C Screening Completed 2019, 02/23/2020 [facility]-Zoster Vaccines Completed 05/07/2021, 12/06/2020 [facility]-Obesity Intervention Completed 025, 05/06/2024 HPV Vaccines Aged Out No longer eligi ble based on patient's age to complete this topic [facility]-HIB Vaccines Aged Out No longer e ligible based on patient's age to complete this topic [facility]-IPV Vaccines Aged Out No longer e ligible based on patient's age to complete this topic [facility]-Rotavirus Vaccines Aged Out No lo nger eligible based on patient's age to complete this topic Medical Devices Implanted Type 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 Tests consolidated . SUNQUEST 02/23/2020 1:26 AM EST 02/23/2020 1:37 AM EST us Christa Wyhte MD LAB BLOOD ORDERABLES Final Res ult SUNQUEST from Last 3 Months or Most Recently Relevant to Health Maintenance Insurance Advance Directives * Full Code (Latest Code Status on File) Date Activated Date Inactivated Comments 05/06/2024 8:58 PM 05/08/2024 4:21 PM If the patie nt has to be mechanically ventilated, she stated she doesn't want that more than 2 days, her off springs were present during this conversation Question Answer Comments Patient has decision-making capacity? Yes Care Teams Locomotive Crane Operator Relationship Specialty Start Date End Date Aleksandar Luciano MD [address] [place] [address] PCP - General 05/09/24
--- OUTSIDE RECORDS SUMMARY | 2024-10-17 12:59 | XMS_ITS | Encounter Summary ---
Author Organization [facility] Address [address] [place] [address] Care Team Providers Care It Technical Specialist Name Role Phone Aleksandar Luciano MD Primary Care Provider [phone] Encounter Details Date Type Department Care Team (Latest Contact Info) Description 10/04/2024 Travel Social History Tobacco Use Types Packs/Day [...] Description 11/16/2024 2:15 PM EDT Office Visit [facility] [address] [place] [id number] Carol Stewart MD [address] [place] [address] documented as of this encounter Visit Diagnoses Not on filedocumented in this encounter Care Teams It Technical Specialist Relationship Specialty Start Date End Date Aleksandar Luciano MD [address] [facility] [place] [address] PCP - General Emergency Medicine 02/17/23 documented as of this encounter
--- OUTSIDE RECORDS SUMMARY | 2024-10-17 12:59 | XMS_ITS | Encounter Summary ---
Author Organization [facility] Address [address] [place] [address] Care Team Providers Care Group Fitness Department Head Name Role Phone Aleksandar Luciano MD Primary Care Provider [phone] Encounter Details Date Type Department Care Team (Late st Contact Info) Description 10/14/2024 Telephone [facility] [address] [place] [address] Tanya Craig MA Social History Tobacco Use Types Packs/Day Years [...] Frequency of Binge Drinking Not on file 0808/2020 Abuse Screen Answer Date Recorded Feels Unsafe [...] encounter Miscellaneous Notes * Telephone Encounter - Tanya Craig MA - 10/14/2024 3:[address] Medrano note is in Epic. * Telephone Encounter - Tanya Craig MA - 10/14/2024 11:52 AM EDT Pt called and is wondering if it is necessary for her to have a VQ scan that Dr. Medrano ordered. 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 He also gave her an inhaler that she states is not helping. I requested note from Dr. Medrano. documented in this encounter Plan of Treatment Upcoming Encounters Date Type Department Care Team (Late st Contact Info) Description 11/16/2024 2:15 PM EDT Office Visit [facility] [address] [place] [id number] Carol Stewart MD [address] [place] [address] documented as of this encounter Visit Diagnoses Not on filedocumented in this encounter Care Teams Group Fitness Department Head Relationship Specialty Start Date End Date Aleksandar Luciano MD [address] [place] [address] PCP - General Emergency Medicine 02/17/23 documented as of this encounter
--- OUTSIDE RECORDS SUMMARY | 2024-10-17 12:59 | XMS_ITS | Data Portability ---
Author Organization [place] [facility] ADMIN Address [address] [place] [id number] Care Team Providers Care Inspector Watch Train Name Role Phone ALEKSANDAR SANDERS Primary Care [...] mayra Salamanca MD, [address], [place], [address], 11:08:[address] referral - sob. may have pe? 2024 025 mayra Medrano MD, [address], [address], [place], [address], 11:08:31 nephrologis t referral 2023 024 mayra Cantrell MD, [address], [place], [address], 07:19:55 gastroenter ologist referral 2023 024 IRON Sousa MD, [address], [place], [address], 4 14:08:28 Procedures None recorded. Surgeries None recorded. Imaging CT, chest, w/ contrast - PE protocol 2024 025 [facility] Scheduling Department -New Scheduling Process, [address], [place], [address], 5 13:21:17 MAMMO, screening, digital, bilateral 2023 024 [email or web address] 0 [facility] (Scheduling), [address] [place], [address], 4 09:55:43 Medication Orders duloxetine 20 mg capsule,del ayed release [address] [facility] [id number], [address] [place] [address], [address], [address], 5 10:31:20 amlodipine 5 mg tablet [address] [facility] [id number], [address] [place] [address], [address], [address], 4 12:23:33 amlodipine 5 mg tablet [address] [facility] [id number], [address] [place] [address], [address], [address], 4 12:05:51 Patient TargetsNo targets recorded. Patient InstructionsNo instructions recorded. Reason for Referral Customer Advocate Referral for Gastric spasm Referring Physician: [facility], Encounter Date: 01/20/2024 Sweeper Brush Maker Machine Referral for Es sential hypertension Referring Physician: Aleksandar [facility], Encounter Date: 01/28/2024 Neurologist Referral for Tra nsient cerebral ischemia Referring Physician: Aleksandar Sanders [facility] Medicine, Encounter Date: 05/18/2024 Chemistry Lab Instructor Referral for D yspnea sob. may have pe? Referring Physician: Aleksandar Sanders [facility] Medicine, Encounter Date: 05/18/2024 Results Created Date Observation Date Name Description Value Unit Range Abnormal Flag Note LastModifiedBy Organization Detail LastModifiedTime 08/12/19 24 08/11/2023 imagi ng inter preta tion No observ ation record ed. [facility] [address], [place], [address], 08/12/2023 16:27:57 06/09/19 25 06/01/2024 CT, chest , w/ contr ast No observ ation record ed. [facility] (Med Record) [address], [place], [address], 06/08/2024 14:27:19 Result Notes None recorded. Problems Name Problem SNOMED Code Status Onset Date Resolution Date Notes Provider Name and Address Organization Details Recorded Time Vertigo 945002273 Active 2022 Oralia Nardai null, [place] [facility] [place] 3 11:45:53 Essential hypertensi on 30884868 Active 2022 Oralia Pardini null[place] [facility] [place] 3 11:46:00 Hypothyroi dism 52722727 Active 2022 Oralia Pardini null, [place] [facility] [place] 3 11:46:08 Sensorineu ral hearing loss 34922772 Active 2022 CLARK REAVES [address], [place], [address] , [place] [facility] [place] 3 10:34:18 Asymmetric al sensorineu ral hearing loss 305028718 Active 2022 CLARK REAVES [address], [place], [address] , [place] [facility] [place] 3 10:36:27 Dizziness 076503902 Active 2022 ESVIN CABRERA, [place] [address], [place], [address] , [place] [facility] [place] 3 10:36:30 Subjective pulsatile tinnitus of left ear 7487419215251 103 Active 2022 CLARK REAVES [address], [place], [address] , [place] [facility] [place] 3 10:36:34 Rib pain 357449562 Active 2022 Aleksandar Sanders MD [address] [place] [address], [address] , [place] [facility] [place] 3 10:39:49 History of colitis 458308793 Active 2023 Oralia mera [place] [facility] [place] 4 15:56:06 Chronic kidney disease 388014106 Active 2023 Oralia mera, [place] [facility] [place] 4 11:37:11 Problem Notes None recorded. Procedures Surgical History Date Name Laterality Status Provider Name and Address Organization Details Recorded Time 03/23/18 81 Tonsillectomy/Andrew oidectomy completed Althea SYLVESTER - [facility] & [place] 01/30/2023 09:07:02 Other completed Althea SYLVESTER - [facility] [place] 01/30/2023 09:07:02 ligation of bilateral fallopian tubes completed Leonor SYLVESTER - [facility] [place] 01/21/2024 11:01:31 extracorporeal shockwave lithotripsy of calculus of kidney completed Leonor SYLVESTER - [facility] [place] 01/21/2024 11:01:48 Imaging Results None recorded. Procedure [...] Pulse oximetry Heart rate Respiratory rate Systolic And Diastolic Systolic And Diastolic Provider Name and Address Organization Details Last Updated DateTime 4 171.45 cm 35.7 kg/m2 042007. 99 g 97.3 [degF] 96 % 96 % 78 /min 20 /min 146/87 mm[Hg] 112/72 mm[Hg] [facility] [place] [facility] [place] 4 10:14:03 Date Recorded Body height Body mass index (BMI) Body weight Heart rate Body temperature Oxygen saturation Oxygen saturation in Arterial blood by Pulse oximetry Systolic And Diastolic Provider Name and Address Organization Details Last Updated DateTime 5 171.45 cm 31.6 kg/m2 98473 g 87 /min 97.5 [degF] 96 % 96 % 119/76 mm[Hg] Oralia [facility] [place] [facility] [place] 5 09:53:53 Date Recorded Body height Body mass index (BMI) Body weight Body temperature Oxygen saturation Oxygen saturation in Arterial blood by Pulse oximetry Heart rate Respiratory rate Systolic And Diastolic Provider Name and Address Organization Details Last Updated DateTime 4 171.45 cm 32.5 kg/m2 57794.2 7 g 97.6 [degF] 96 % 96 % 69 /min 16 /min 161/82 mm[Hg] [facility] [place] [facility] [place] 4 10:31:31 Date Recorded Body height Body mass index (BMI) Body weight Body temperature Oxygen saturation Oxygen saturation in Arterial blood by Pulse oximetry Heart rate Respiratory rate Systolic And Diastolic Provider Name and Address Organization Details Last Updated DateTime 4 171.45 cm 32.8 kg/m2 01194.4 6 g 98 [degF] 95 % 95 % 64 /min 16 /min 191/91 mm[Hg] [facility] & [place] 4 12:05:30 Date Recorded Body height Body mass index (BMI) Body weight Body temperature Oxygen saturation Oxygen saturation in Arterial blood by Pulse oximetry Heart rate Respiratory rate Systolic And Diastolic Provider Name and Address Organization Details Last Updated DateTime 4 171.45 cm 33.4 kg/m2 38047.1 1 g 97.2 [degF] 99 % 99 % 57 /min 16 /min 185/79 mm[Hg] Oralia SYLVESTER [facility] & [place] 11:54:17 Social History Question Answer Notes LastModified by Organizat ion Details LastModified Time Tobacco Smoking Status Never Smoker Oralia mera, [facility] & [place] 12/09/2022 11:46:49 Do You Have An Advance Directive? No [email or web address] Information n ot available 02/04/2023 Do You Wear A Helmet When Biking? No Information not available 02/29/2024 Are You Blind Or Do You Have Difficulty Seeing? No [email or web address] Information n ot available 02/04/2023 What Is Your Level Of Caffeine Consumption? Occasional [email or web address] Information not available 02/04/2023 In The 14 [...] Do You Have A Medical Power Of Mannequin Wig Maker? No Information not available 02/29/2024 What Was The Date Of Your Most Recent Tobacco Screening? 02/01/2023 [email or web address] Information not available 02/04/2023 Do You Use Your Seat Belt Or Car Seat Routinely? Yes Information not available 02/29/2024 Are You Passively Exposed To Smoke? No [email or web address] Information no t available 02/04/2023 Has Tobacco Cessation Counseling Been Provided? No [email or web address] Information not available 02/04/2023 Do You Have [...] other forms of tobacco or nicotine? No [email or web address] Information not available 02/04/2023 What is your level of alcohol consumption? None Information not available 12/09/2022 Are you currently employed? No Information not available 02/29/2024 Do you have transportation difficulties? No Information not available 02/29/2024 Are you able to walk? [email or web address] Information not available 02/29/2024 Do you have difficulty doing errands alone? No Information not available 02/29/2024 Are you able to care for yourself independently? Yes Information not available 02/29/2024 Do you have difficulty dressing, bathing, grooming, or toileting? No Information not available 02/29/2024 What is your exercise level? Moderate [email or web address] Information not available 02/04/2023 Mental Status Question Answer Note LastModified by Organizat ion Details LastModified Time Do you feel stressed (tense, restless, nervous, or anxious, or unable to sleep at night)? [id number] Information not available 02/29/2024 Do you have difficulty concentrating, remembering or making decisions? No Information no t available 02/29/2024 Family History Relationship Description Onset Age of this Age Resolved Age Notes LastModified by Organization Details LastModified Time Father No current problems or disability [email or web address] Not available 02/04 10:08:24 Father Suicide [email or web address] Not available 02/04/2023 10:08:24 Father Father [email or web address] Not available 2022 10:08:24 Mother No current problems or disability [email or web address] Not available 02/04 10:08:24 Mother Chronic obstructive pulmonary disease 81 Not available 2022 09:24:38 Mother Heart disease 81 [email or web address] Not available 2022 09:24:58 Mother Mother 81 [email or web address] Not available 2022 10:08:24 Brother Motor vehicle accident Not available 2022 10:08:24 Brother Sibling [email or web address] Not available 2022 10:08:24 Daughter Kidney disease [email or web address] Not available 2022 09:26:26 Medical History Condition Response Allergies/Hayfever Y Ear or Hearing Problems Y Thyroid Problems Y Arthritis Y Stroke Y Sleep Disorder Y Hypertension Y Gynecological History Statement/Question Response Menses Monthly N Sexually Active? N Obstetrics History GPAL:G 0 P 0 0 0 0 Immunizations Vaccine Type Date Status Note Provider Nam e and Address Organization Details Recorded Time Tdap 03/27/2017 completed [place] - [facility] 01/30/2023 09:26:47 zoster recombinant 05/07/2021 completed Althea mera [place] - [facility] [place] 08/10/2023 09:11:39 zoster recombinant 12/06/2020 completed Althea mera [place] [facility] [place] 08/10/2023 09:11:39 Influenza, high-dose, quadrivalent, PF 12/26/2021 iman mera [place] [facility] [place] 08/10/2023 09:11:39 COVID-19, mRNA, LNP-S, PF, 100 mcg/0.5mL dose or 50 mcg/0.25mL dose 04/14/2020 iman mera [place] [facility] [place] [facility] [place] 08/10/2023 09:11:40 COVID-19, mRNA, LNP-S, PF, 100 mcg/0.5mL dose or 50 mcg/0.25mL dose 05/12/2020 completed Althea [place] null[place] [facility] [place] [facility] [place] 08/10/2023 09:11:40 COVID-19, mRNA, LNP-S, PF, 100 mcg/0.5mL dose or 50 mcg/0.25mL dose 02/07/2021 completed Althea [place] [facility] [place] 08/10/2023 09:11:40 Hep B, unspecified formulation 08/13/1995 completed Althea [place] [facility] [place] 08/10/2023 09:11:40 Hep A, adult 04/25/2019 completed Althea ramirez [place] [facility] [place] 08/10/2023 09:11:40 Hep A, adult 10/13/2018 completed Althea Sin s [place] [facility] [place] 08/10/2023 09:11:40 Past Encounters Encounter ID Performer Location Encounter Start Date Encounter Closed Date Diagnosis/Indication Diagnosis SNOMED-CT Code Diagnosis ICD10 Code Diagnosis Note [id number] Aleksandar Sanders MD [address] [place] [address] 11/19/2022 10:13:48 11/19/2022 11:40:30 History of cerebrovascular accident 330703872 Z86.73 patient appears to have had a new cerebrovas cular accident. Will refer her to speech therapy, and neurology. Will attempt to get an MRI. Essential hypertension 67289020 I10 Patient's blood pressure appears to be irregular. She has been advised to keep a log, hold off taking the amlodipine and follow-up in a week. Hypothyroidism 81645066 E03.9 Will obtain lab work today. Ulcerative colitis 32849 004 K51.90 patient is being followed by gastroente rology. Diabetes m ellitus screening 436080034 Z13.1 Will obtain screening labs at this time. Dizziness 806497903 R42 [id number] Aleksandar Sanders MD [facility] [address] [place] [address] 11/26/2022 15:11:36 11/26/2022 15:56:43 Orthostatic hypotension 33269580 I95.1 pt to hold all blood pressure lowering meds at this time call in 24 hrs with readings and symptoms Dizziness 648038268 R42 hold bp meds - will obtain echocardio gram [id number] Aleksandar Sanders MD [facility] [address] [place] [address] 12/09/2022 11:24:52 12/09/2022 12:15:38 Dizziness 715193791 R42 patient to follow-up with leida harden. Will treat her for labyrinthi tis. She is to to call and get her speech therapy appointmen fina garcia Decreased hearing 834110 001 H91.92 will refer patient to ENT. [id number] Minog Heredia M.D [facility] Neurology [address],[facility] [address] [place] [address] 12/11/2022 10:10:20 12/11/2022 11:23:54 Benign paroxysmal positional vertigo 368938703 H81.10 Dysarthria 5782420 R47.1 [id number] CLARK REAVES [facility] [facility] [place] [place] [address] 12/16/2022 09:29:44 12/16/2022 09:54:04 Asymmetrical sensorineural hearing loss 450157197 H90.5 Dizziness 036712824 R42 Subjective pulsatile tinnitus of left ear 8276104589 136671 H93.A2 [id number] Krystal Lafleur MD [facility] [address] 12/17/2022 15:31:10 12/17/2022 16:20:02 Dizziness 442190246 R42 Went over the results of the [...] if needed. Asymmetric al sensorineural hearing loss 125638081 H90.5 Subjective pulsatile tinnitus of left ear 4241155410 544995 H93.A2 Labyrinthitis 11872738 H 83.02 [id number] Krystal Lafleur MD [facility] [place] [address] 01/07/2023 08:54:12 01/07/2023 09:29:42 Dizziness 118620704 R42 Patient's hearing and dizziness has improved overall. I have encouraged her to resume normal activities as much as possible and continue with PT for vestibular therapy. Asymmetric al sensorineural hearing loss 401840769 H90.5 Subjective pulsatile tinnitus of left ear 7010611967 109852 H93.A2 Labyrinthitis 19005310 H 83.02 [id number] CLARK REAVES [facility] [place] [address] 01/07/2023 09:03:58 01/07/2023 09:13:00 Asymmetrical sensorineural hearing loss 002572900 H90.5 [id number] Aleksandar Sanders MD [facility] [address] [place] [address] 02/04/2023 10:07:45 02/04/2023 10:27:32 Essential hypertension 69976071 I10 patient with hold metoprolol and follow-up in a week with a log. Vertigo 819706195 R42 resolved [id number] Krystal Lafleur MD [facility] [place] [address] 02/04/2023 08:56:48 02/04/2023 09:41:10 Dizziness 522572828 R42 Explained to patient she may be [...] back to baseline but she has seen significan t improvemen t. I will see her back as needed. Labyrinthitis 89267206 H 83.02 [id number] Aleksandar Sanders MD [address] [place] [address] 02/11/2023 09:42:42 02/11/2023 10:21:29 Screening mammography of bilateral breasts 0942692827 46558 Z12.31 Chest wall pain 93266604 6 R07.89 continued Pain from rib fractures 5 months ago. Will obtain x-rays today. Essential hypertension 75800310 I10 Patient is log has been reviewed. It appears that her blood pressures are completely erratic. There is also a drop in blood pressure with position. I have asked patient to restart her metoprolol and I have personally walked over to see her cardiologi st Dr. Terry Gomez 904053959 R42 resolved Rib pain 372436378 R07.8 1 continued rib pain to the right side. We will obtain x-rays today. [id number] Aleksandar Sanders MD [address] [place] [address] 04/22/2023 09:50:58 04/22/2023 10:41:41 Essential hypertension 75909176 I10 Patient needs to follow-up with cardiology as discussed. We have called them for an appointmen t. They will call patient with a early appointmen t to see Dr. Stewart [id number] Aleksandar Sanders MD [address] [place] [address] 08/12/2023 10:07:43 08/12/2023 10:57:43 Essential hypertension 84258070 I10 I have called Cardiology . Patient has a follow-up appointmen t. In the meantime, will start her on amlodipine for now. She has been advised to continue to check her blood pressure. Pain of [facility] 75760586 M25.519 patient needs to follow-up with orthopedis t. We have already made an appointmen t for her to see the orthopedis t. [id number] Aleksandar Sanders MD [address] [place] [address] 01/20/2024 11:45:23 01/20/2024 12:17:20 Essential hypertension 93327439 I10 I have instructed patient to restart her amlodipine , I have asked her to take 5 mg a day. She has been instructed to create a log of her blood pressure once she starts the medication and to follow-up in a week. Gastric spasm 333026176 K31.89 Ms. Chadwick has a history of ulcerative colitis. She is complainin g of chronic gastric spasms.ed fisherespinoza is requesting a referral to her gastroente rologist. She sees Dr. Ronquillo in [place]. [id number] Aleksandar Sanders MD [address] [place] [address] 01/28/2024 11:44:06 01/28/2024 12:27:02 Screening mammography of bilateral breasts 2227246280 59452 Z12.31 Essential hypertension 09599587 I10 we have reviewed patient's blood pressure log. Amlodipine has not made any changes to patient's blood pressure. Her blood pressure continues to be labile. Will refer patient to Nephrology for assistance with management . Patient is already seeing Cardiology .we have also given patient 2 weeks samples of kerendia [id number] Aleksandar Sanders MD [address] [place] [address] 05/18/2024 09:41:18 05/18/2024 10:00:01 Hospital inpatient stay within past 30 days 5798050759 106 Z76.89 Transient cerebral ischemia 459672936 G45.9 will refer patient to neurology. Dyspnea 510603336 R06.00 patient appears to be short of breath. Her O2 sat is above 90 however will refer to pulmonolog y. 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 Health Concerns Section Related Observation LastModified by Organization Detai ls LastModified Time None Recorded Concern Status LastModified by Organization Details LastModified Time None Recorded Advance Directives Directive N: Payers Insurance Date Sequence Insurance Name Policy Number Policy Colon Covered Member ID Colon Member ID Guarantor Name 05/17/2024 1 [employer] (MEDICARE REPLACEMENT/ ADVANTAGE - PPO) Izabela Chadwick [id number] Izabela Chadwick 04/17/2023 1 [place] Izabela Chadwick [id number] Izabela Chadwick 04/15/2023 1 [place] [id number] Izabela Chadwick [id number] Izabela Chadwick 04/17/2023 1 *SELF PAY* Chandan Chadwick OBGyn Episode No OBEpisode recorded.
--- NOTE | 2024-10-17 13:00 | NM_ITS ---
FINAL REPORT CLINICAL HISTORY: SOB 1:20PM 36.4 MCI TC DTPA 2:00PM 8.02 MCI TC MAA CXR ALSO DONE TODAY FINDINGS: NUCLEAR MEDICINE VENTILATION AND PERFUSION IMAGING TECHNIQUE: V/Q scan is performed utilizing 36.4 technetium 99 M DTPA aerosol and IV administration of 8.02 technetium 99 M MAA. Images were obtained in AP, PA, lateral, and oblique projections. FINDINGS There is no evidence of segmental or subsegmental mismatch perfusion defects. IMPRESSION: Low probability for pulmonary embolus. Reviewed, Interpreted and Dictated by Dana Dimas MD Transcribed by Christa Newell Authenticated and [facility]
[2024-10-17] MEDS: ISOTOPE DTPA(AEROSOL);1 DOSE (UP TO 75 MCI) IV (14:06)
[2024-10-17] MEDS: ISOTOPE TC MAA;1 DOE (UP TO 45 MCI) 1 DOSE IV (14:06)
[2024-10-17] MEDS: SODIUM CHLORIDE 0.9% 10ML SYR (RAD ONLY) 10 ML IV (14:06)
--- NOTE | 2024-10-17 14:10 | XR_ITS ---
FINAL REPORT CLINICAL HISTORY: For VQ scan FINDINGS: PA and lateral views of the chest were obtained. There is no prior exam for comparison. The cardiac and mediastinal silhouettes are within normal limits. The lungs are clear. There is no pleural effusion or pneumothorax. No acute osseous abnormality is identified. IMPRESSION: No radiographic evidence of acute cardiac or pulmonary disease. Reviewed, Interpreted and Dictated by Dana Dimas MD Transcribed by LOKESH Del Cid Authenticated and [facility]
== END 2024-10-17 23:59 | disposition home or self-care (01) ==
LOC: RAD 12:53
PROVIDERS: PCP Emergency Medicine; Visit Provider Internal Medicine Pulmonary Disease
DX: R06.09 Other forms of dyspnea (principal); R06.02 Shortness of breath
CPT/HCPCS: 71046; 78582; A9540; A9567

== ENCOUNTER 2025-02-09 11:49 | Day surgery (SDC) | payer MEDICARE, SELFPAY ==
--- NOTE | 2025-02-03 16:49 | EXP.HP ---
History of Present Illness *Admission Date: 02/09/25 *History of present illness: Mrs. Chadwick is a 69-year-old female who is here for screening/surveillance colonoscopy. The patient did have a colonoscopy with me in February 2019 and had 2 small polyps (small serrated adenomas x 2) removed. The patient also has a history of chronic ulcerative colitis diagnosed in 1994 and has been on Lialda 2 tablets once or twice daily for years. The patient states that her insurance declined to cover the Lialda and now she is on generic mesalamine. She does have intermittent episodes of blood and mucus with her stool for which she uses Canasa suppositories which worked well. The examination is deemed medically necessary for screening/surveillance colonoscopy. The patient has been seen, interviewed and examined prior to the procedure by both myself and the anesthesia provider. [facility] Disclaimer: The information contained in this section may have been updated after the patient was seen, as this information can be updated by other users. Medical History POTS (postural orthostatic tachycardia syndrome) Thyroid disease Arthritis TIA (transient ischemic attack) Kidney stones Hyperlipidemia Hernia GERD (gastroesophageal reflux disease) Asthma Dyspnea on exertion Hypertension Mini stroke Surgical History History of loop recorder H/O shoulder surgery H/O tubal ligation History of colonoscopy Family History Other Heart attack Hypertension Kidney disease Stroke Social History Smoking Status: Never smoker alcohol intake: never substance use type: denies use current occupational status: employed Travel in the last 8 weeks?: None household members: none housing: house current occupational exposures/hazards: No caffeine: No Have you lived/traveled outside [place] in past 30 days?: No Contact w/someone who lives/traveled outside [place] past 30 days?: No Exposure to someone with infectious disease in past 14 days?: No Do you have a fever (greater than 100.4 F or 38 C)?: No Have you tested positive for COVID-19?: No Exposed to someone with COVID-19 in past 14 days?: No Do you have a sore throat?: No Do you have a cough?: No Do you have any weakness?: No Do you have any diarrhea?: No Are you experiencing any unusual bleeding?: No Do you have any muscle aches/pain?: No Do you have any abdominal pain?: No Are you experiencing loss of taste or smell?: No Other Medical History Have you received the Flu Vaccine for this season: Yes Have you received the Pneumonia Vaccine: Yes Review of Systems Review of Systems Review of systems (narrative): Negative *Cardiovascular Comments: Negative *Gastrointestinal Comments: Negative *Genitourinary Comments: Negative *Musculoskeletal Comments: Negative *Neurologic Comments: Negative Meds Home Medications and Allergies Home Medications ?Medication ?Instructions ?Recorded ?Confirmed ?Type multivitamin-iron 27 mg-folic acid 1 each PO DAILY Supplement 03/07/19 02/07/25 History 400 mcg-calcium and minerals tablet clonidine 0.2 mg/24 hr weekly 1 patch transdermal WEEKLY 02/08/24 02/07/25 History transdermal patch levothyroxine 25 mcg tablet 25 mcg PO DAILY 02/08/24 09/28/24 History magnesium 200 mg tablet 200 mg PO DAILY 02/08/24 02/07/25 History mesalamine 1.2 gram tablet,delayed 2.4 g (2 x 1.2 gram) PO BID #360 02/08/24 09/28/24 Rx release (Lialda) tabs omeprazole 20 mg capsule,delayed 20 mg PO DAILY 02/08/24 02/07/25 History release aspirin 81 mg tablet,delayed 81 mg PO DAILY 07/19/24 02/07/25 History release (Adult Low Dose Aspirin) atorvastatin 40 mg tablet 40 mg PO HS 07/19/24 02/07/25 History mesalamine 1,000 mg rectal [place] PRN 07/19/24 09/28/24 History suppository nifedipine 60 mg tablet,extended 60 mg PO HS 07/19/24 02/07/25 History release 24 hr (Procardia XL) budesonide-formoterol HFA 160 2 puff inhalation BID 09/28/24 02/07/25 History mcg-4.5 mcg/actuation aerosol inhaler budesonide-formoterol HFA 160 2 puff inhalation BID 90 days 09/28/24 09/28/24 Rx mcg-4.5 mcg/actuation aerosol #10.2 grams inhaler duloxetine 20 mg capsule,delayed 20 mg PO DAILY 09/28/24 02/07/25 History release mesalamine 0.375 gram 0.375 g PO DAILY 02/07/25 02/07/25 History capsule,extended release 24 hr New Prescriptions to Start Prescriptions: Allergies Allergy/AdvReac Type Severity Reaction Status Date / Time amlodipine AdvReac Dizziness Verified 02/09/25 12:23 lisinopril AdvReac Dizziness Verified 02/09/25 12:23 metoprolol AdvReac Dizziness Verified 02/09/25 12:23 Exam *Routine HEENT Exam Head: Present normocephalic Eye: Present EOMI and PERRL ENT: Present mucous membranes moist *Routine Neck Exam Neck: Present supple *Routine Respiratory Exam Respiratory: Present CTA bilaterally *Routine Cardiovascular Exam Cardiovascular: Present RRR *Routine Abdominal Exam Abdominal: Present soft and normoactive bowel sounds; Absent tenderness *Routine Rectal Exam Rectal:: deferred *Routine Genitalia Exam Genitalia:: deferred *Routine Extremities Exam Extremities: Absent cyanosis, clubbing or edema *Routine Skin Exam Skin: Present warm; Absent rash *Routine Neurological Exam Neurological: Present alert and oriented X3 Assessment and Plan *Assessment and plan (1) Personal history of adenomatous and serrated colon polyps: Status: Acute Category: Medical Code(s): Z86.0101 - Personal history of adenomatous and serrated colon polyps (2) History of chronic ulcerative colitis: Status: Acute Category: Medical Code(s): Z87.19 - Personal history of other diseases of the digestive system Plan A/P: 1. Personal history of adenomatous/serrated colon polyps and history of chronic ulcerative colitis is the preprocedural diagnosis. The patient will be anesthetized/sedated using MAC sedation. The patient has been seen and examined. Cardiac and lung assessment prior to the examination is stable. Proceed with planned screening/surveillance colonoscopy.
[2025-02-07 16:09] VITALS: BMI 34.4
--- NOTE | 2025-02-09 07:02 | HMH.PROCNOTE ---
[facility] Procedure Note Date: 02/09/25 Time: 13:53 Procedure Note:: Colonoscopy Procedure Report: Colonoscopy with cold snare polypectomy Endoscopist: Samuel Sousa II, MD Referring physician: Aleksandar Luciano MD Date of Procedure: February 09, 2025 Equipment: Olympus [id number] adult colonoscope Sedation: MAC sedation Indication: Mrs. Chadwick is a 69-year-old female who is here for screening/surveillance colonoscopy. The patient did have a colonoscopy with or in February 2019 and had 2 small polyps (small serrated adenomas x 2) removed. The patient also has a history of chronic ulcerative colitis diagnosed in 1994 and has been on Lialda 2 tablets once or twice daily for years. The patient states that her insurance declined to cover the Lialda and now she is on generic mesalamine 0.375 g 4 capsules once daily. For the most part, she has no abdominal complaints and reports no rectal bleeding or mucus with her stools. She reports no abdominal pain, weight loss, change in her bowel habits or diarrhea. She reports no family history of colitis or colon cancer. She does have intermittent episodes of blood and mucus with her stool for which she uses Canasa suppositories which worked well. The patient did receive the COVID-vaccine and developed long COVID symptoms and POTS. The examination is deemed medically necessary for screening/surveillance colonoscopy. Procedure: Prior to the procedure, a history and physical exam was performed, and patient's medications and allergies were reviewed. The risks, benefits and alternatives of the sedation and procedure were discussed with the patient. All questions were answered and informed consent was obtained. The patient was brought to the procedure room. Patient identification and proposed procedure were verified by the physician and the nurse. The patient was placed in a left lateral decubitus position and the scope was passed under direct vision. Throughout the procedure, the patient's blood pressure, pulse, and oxygen saturations were monitored continuously. The colonoscopy was accomplished without difficulty. The patient tolerated the procedure well. Findings: On digital rectal examination there was normal rectal tone. There were no external hemorrhoids. The colonoscope was introduced through the anal canal to the rectum and advanced to the cecum. The ileocecal valve and appendiceal orifice were identified. The scope was advanced a short distance into the ileum which appeared grossly normal. The scope was then withdrawn into the colon. The cecum, ascending, transverse, descending and sigmoid colon were normal. There were no mucosal abnormalities and no evidence of any active colitis. There was a diminutive hyperplastic appearing 4 mm polyp in the rectum that was removed via cold snare polypectomy. Upon retroflexion within the rectum there were grade 1-2 internal hemorrhoids. The preparation was excellent throughout with [place] Preparation Score of 9. The cecal time was 12 minutes. Impression: 1. Diminutive hyperplastic appearing rectal polyp 2. Otherwise normal colonoscopy with intubation of the terminal ileum (no active ulcerative colitis) Plan: I will discuss the findings with the patient and family.
[2025-02-09 12:25] VITALS: BP 167/83; PULSE 76; RESP 18; TEMP 36.6; O2SAT 96
[2025-02-09] MEDS: LACTATED RINGERS 1000ML 1,000 ML 50 ML IV (12:31)
--- NOTE | 2025-02-09 12:56 | P.PNANES_ITS ---
[facility] Disclaimer: The information contained in this section may have been updated after the patient was seen, as this information can be updated by other users. Medical History POTS (postural orthostatic tachycardia syndrome) Thyroid disease Arthritis TIA (transient ischemic attack) Kidney stones Hyperlipidemia Hernia GERD (gastroesophageal reflux disease) Asthma Dyspnea on exertion Hypertension Mini stroke Surgical History History of loop recorder H/O shoulder surgery H/O tubal ligation History of colonoscopy Family History Other Heart attack Hypertension Kidney disease Stroke Social History Smoking Status: Never smoker alcohol intake: never substance use type: denies use current occupational status: employed Travel in the last 8 weeks?: None household members: none housing: house current occupational exposures/hazards: No caffeine: No Have you lived/traveled outside [place] in past 30 days?: No Contact w/someone who lives/traveled outside [place] past 30 days?: No Exposure to someone with infectious disease in past 14 days?: No Do you have a fever (greater than 100.4 F or 38 C)?: No Have you tested positive for COVID-19?: No Exposed to someone with COVID-19 in past 14 days?: No Do you have a sore throat?: No Do you have a cough?: No Do you have any weakness?: No Do you have any diarrhea?: No Are you experiencing any unusual bleeding?: No Do you have any muscle aches/pain?: No Do you have any abdominal pain?: No Are you experiencing loss of taste or smell?: No [facility] Anesthesia Checklist Patient Identification Patient Identification: Arm Band and Family Structural Data Admitted From: Home Planned Operative Procedure/s: colonoscopy Consent for Planned Operative Procedure(s) Verified: Yes Verified Documents: Surgical Consent and History and Physical NPO Status Verified Time NPO: 00:00 Additional verifications Patient : No Anesthesia Reactions: No Hx Blood Transfusions: No Blood Transfusion Reaction: No Cephalosporin Allergy: No Previous Colonoscopy: Yes Airway Assessment Mallampati Score:: Class II C-Spine Mobility Assessed: Yes TMJ Mobility Assessed: Yes Dentition: Good Dentition Neurological Assessment Level of Consciousness: Awake, Alert, Appropriate and Follows Commands Hx Seizures: Yes Numbness or tingling in extremities: Yes Anesthesia Plan Anesthesia Risk discussed: Yes ASA Class: II Anesthesia Type: MAC
[2025-02-09 13:55] VITALS: BP 148/72; PULSE 65; RESP 18; TEMP 36.2; O2SAT 95
[2025-02-09 14:05] VITALS: BP 138/67; PULSE 74; O2SAT 99
[2025-02-09 14:15] VITALS: BP 150/59; PULSE 76; O2SAT 97
[2025-02-09 14:25] VITALS: BP 160/67; PULSE 63; O2SAT 98
== END 2025-02-09 14:25 | disposition home or self-care (01) ==
PROVIDERS: PCP Emergency Medicine; Visit Provider Internal Medicine Gastroenterology
PROC: 0DJD8ZZ Inspection of Lower Intestinal Tract, Via Natural or Artificial Opening Endoscopic (ICD-10-PCS; CPT 45378; principal; 2025-02-09 13:30)
DX: Z12.11 Encounter for screening for malignant neoplasm of colon (principal); D12.8 Benign neoplasm of rectum; K64.0 First degree hemorrhoids; K64.1 Second degree hemorrhoids; I10 Essential (primary) hypertension; E78.5 Hyperlipidemia, unspecified; J45.909 Unspecified asthma, uncomplicated; G90.A Postural orthostatic tachycardia syndrome [POTS]; Z86.73 Personal history of transient ischemic attack (TIA), and cerebral infarction without residual deficits; Z86.0101 Personal history of adenomatous and serrated colon polyps; Z87.19 Personal history of other diseases of the digestive system; Z79.82 Long term (current) use of aspirin; Z88.8 Allergy status to other drugs, medicaments and biological substances
CPT/HCPCS: 45385; 88305; J2003; J2704; J7120